=== PATIENT | male | born 1970 | race Caucasian/White ===

== ENCOUNTER 2019-05-16 08:22 | Emergency (ER) | payer OTHER, SELFPAY ==
[2019-05-16 08:36] VITALS: BP 166/97; PULSE 66; RESP 16; TEMP 36.2; O2SAT 98
--- NOTE | 2019-05-16 08:42 | ED.URI ---
HPI - URI/Sore Throat General Chief Complaint: Upper Respiratory Infection Stated Complaint: Congestion Time Seen by Provider: 05/16/19 08:42 Source: patient Mode of arrival: ambulatory Limitations: no limitations History of Present Illness HPI Narrative: Felipe Dutton is a 49 yo male with a PMH of HTN, low testosterone, gout, comes to express care with complaints of upper respiratory symptoms x2 to 3 days. States that he has a lot of congestion and eye watering this morning along with a dry cough Related Data Home Medications Medication Instructions Recorded Confirmed allopurinol 300 mg PO DAILY 05/16/19 05/16/19 amlodipine [Norvasc] 10 mg PO DAILY 05/16/19 05/16/19 benazepril 80 mg PO DAILY 05/16/19 05/16/19 carvedilol [Coreg] 12.5 mg PO BID 05/16/19 05/16/19 Allergies Allergy/AdvReac Type Severity Reaction Status Date / Time ciprofloxacin Allergy Unknown Rash Verified 05/16/19 08:46 Review of Systems Review of Systems: Narrative: My cONSTITUTIONAL: Denies fever, chills, sweats. EYES: Denies visual changes, redness, discharge. ENT: Has rhinorrhea, congestion, mild sore throat, no otalgia. CARDIOVASCULAR: Denies chest pain, palpitations, edema. RESPIRATORY: Denies dyspnea, wheezing, dry cough GASTROINTESTINAL: Denies abdominal pain, nausea, vomiting, diarrhea. GENITOURINARY: Denies dysuria, hematuria, abnormal discharge SKIN: Denies rash or itching. MUSCULOSKELETAL: Denies acute back pain, joint pain, or myalgia. NEUROLOGIC: Denies numbness, or focal weakness. PSYCHIATRIC: Denies anxiety or depression. [facility] Past Medical History Medical History Chronic pain of right knee Diverticulitis HLD (hyperlipidemia) HTN (hypertension) Hyperglycemia Osteoarthritis Polycythemia Family History Family History Father Family history of gout Family history of primary malignant neoplasm of liver Daughter Leukemia Other Family history of malignant neoplasm Hypertension Social History Social History Smoking status: Never smoker Alcohol intake: current Gender identity (if verbalized by the patient): Male Comments At time of signature, I agree with nursing past medical, surgical, social and family history. There is no relevant family history pertinent to the presenting complaint. Exam Narrative: Exam Narrative: GENERAL: This is a well-nourished, well-developed patient, in mild distress. HEAD: normocephalic, atraumatic. EYES: Sclera clear/white. Vision is grossly intact. EARS: External ears normal, auditory canals clear and without drainage, TMs normal without perforation. Hearing grossly intact. NOSE: External nose normal with nasal discharge, nares with redness, has rhinorrhea. THROAT: Mucous membranes moist, posterior pharynx erythema NECK: Neck supple, non-tender without lymphadenopathy, CARDIOVASCULAR: Regular rate and rhythm without murmurs, gallops, or rubs. RESPIRATORY: Clear to auscultation. Breath sounds equal bilaterally. No wheezes, rales, or rhonchi. GASTROINTESTINAL: Abdomen soft, SKIN: warm, good texture and turgor. NEURO: awake, alert, and oriented to person, place and time. There were no obvious focal neurologic abnormalities. EXTREMITIES: Normal range of motion. No edema adult exam Course Course Emergency Course: Flu swab Vital Signs Vital signs: Vital Signs Temperature 97.2 F L 05/16/19 08:36 Pulse Rate 66 05/16/19 08:36 Respiratory Rate 16 05/16/19 08:36 Blood Pressure 166/97 H 05/16/19 08:36 Pulse Oximetry 98 05/16/19 08:36 Temperature 97.2 F L 05/16/19 08:36 Pulse Rate 66 05/16/19 08:36 Respiratory Rate 16 05/16/19 08:36 Blood Pressure 166/97 H 05/16/19 08:36 Pulse Oximetry 98 05/16/19 08:36 MDM - URI/Sore Throat Differential Diagnosis Differential diagnosis: Likely u
== END 2019-05-16 09:18 | disposition home or self-care (01) ==
PROVIDERS: Emergency Provider Nurse Practitioner; PCP Internal Medicine
DX: J06.9 Acute upper respiratory infection, unspecified (principal); E78.5 Hyperlipidemia, unspecified; I10 Essential (primary) hypertension; M19.90 Unspecified osteoarthritis, unspecified site
CPT/HCPCS: 87804; 99213; G0463

== ENCOUNTER 2021-02-11 08:00 | Outpatient (RCR) | payer OTHER, SELFPAY ==
--- NOTE | 2020-12-10 08:50 | PTOPEVAL ---
PHYSICAL THERAPY EVALUATION AND PLAN OF CARE 12-10-20 Thank you for referring Felipe Dutton to [facility] [place].? He is scheduled to be seen for therapy? 1 x/week for 5 weeks. Please review, sign, date and return this plan of care LULY. I agree with and certify that the following plan of care is medically necessary. Referring Physician Date Attending Provider: MIKALA Adams PT Outpatient Evaluation Document 12/10/20 08:00 DANISH (Rec: 12/10/20 08:50 DANISH [id number]) Outpatient Past Medical History Past Medical History Source of Past Medical History Recalled from Previous Visit, Confirmed with Patient/Family Neurological History Hx Neurological Disorders No Significant History Cardiovascular History Hx Hypertension Yes: meds Respiratory History Hx Respiratory Disorders No Significant History Gastrointestinal History Hx Other Gastrointestinal Disorders Yes: bowel surgery due to diverticulitis Genitourinary History Hx Genitourinary Disorders No Significant History Musculoskeletal History Hx Gout Yes Hx Orthopedic Surgery Yes: R hand fracture Hx Other Musculoskeletal Disorders Yes: R and L shoulder pain/ injuries; B knee pain Evaluation Information Problem Diagnosis R shoulder pain Onset Nov 15, 2020 Subjective Information onset of increased pain with Query Text:As Reported By Patient/ lifting heavy bag and throwing Family trash bag into dumpster; has improved with less pain and more motion--doing exercises when lying down in bed; going to see ortho 12-15-20; original injury to R shoulder pitching baseball, issues off /on since then; also has problems with L shoulder Diagnostic Tests X-Rays For This Problem No MRI For This Problem No: reports cannot have MRI due to metal in his hand Other Tests For This Problem No Previous Treatments Previous Treatments For This Problem no previous PT on shoulder Prior Level of Function Activity Level (Last 3 Months) 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
--- NOTE | 2020-12-24 08:31 | PCPTNOTE ---
Patient called to cancel appointment for today 12/24/20 due to being called into work.
--- NOTE | 2021-01-07 08:21 | PCPTNOTE ---
Patient no showed to appointment this date. Patient was called but no answer. Left a voicemail this date informing of missed appointment at upcoming re eval on 01/13/21.
--- NOTE | 2021-01-13 11:55 | PCPTNOTE ---
pt did not show for today's reeval; called pt and he thought appt was tomorrow; rescheduled for tomorrow;
--- NOTE | 2021-01-14 08:49 | PTOPEVAL ---
PHYSICAL THERAPY REEVALUATION AND UPDATED PLAN OF CARE 01-14-21 Refer to the Clinical Summary below, for his status today, compared to the initial evaluation. The goals were partially achieved. PT is to continue treatment 1x/wk for 4 weeks, to further increase his shoulder strength and flexibility, with decrease pain. Thank you for referring Felipe Dutton to [facility].? Please review, sign, date and return this updated plan of care [facility]. I agree with and certify that the following plan of care is medically necessary. Referring Physician Date Attending Provider: MIKALA Adams *PT Outpatient Re-Evaluation Document 01/14/21 08:00 DANISH (Rec: 01/14/21 08:49 DANISH [id number]) Subjective Information Felipe reports: shoulder is Query Text:As Reported By Patient/ better and making progress, Family have more ROM and less pain in it; have not been playing pickleball, want to get back to it, going to do some gentle hitting of the ball; doing stretches, they help loosen it up; is using his arm at work , lifting and doing things with it; want to continue therapy for shoulder; Pain Assessment Timing of Pain Assessment Timing of Pain Assessment Assessment Pain Scale Pain Scale Used Numeric (1 - 10) Self Report Pain Assessment Right Shoulder(s) Reported Pain Level 0 Radicular Pain Location posterior shoulder joint; Pain Frequency Chronic,Intermittent Other Pain Description restrictive type pain, tell when push it and it hurt Lowest Pain Intensity 0 Greatest Pain Intensity 6 Pain Aggravating Factors Exercise/Activity,Lifting Other Pain Aggravating Factors lifting up weight forward, reach behind back, reach across body Pain Behaviors Anxious,Grimacing,Guarding Pain Score Pain Score 0: Self Report Additional Pain Score Comments Self assessment with the Quick DASH, 23 % limitation in activity level; with sleeping, awaken 1x/night due to pain Interventions Used Interventions Used By Clinicians Education,Exercise Pain Relief Interventions Used By Exercise,Inactivity/Rest Patient Other Alleviating Interventions no heat/ice used; taking meloxicam PRN; Upper Extremity Range of Motion Scapular/ Shoulder Range of Motion Right Shoulder Flexion - Active 155 Shoulder Abduction - Active
--- NOTE | 2021-01-21 15:30 | PCPTNOTE ---
Patient did not show up for scheduled appointment this date. Called and left voice mail about missed appointment. Reminded Pt of upcoming appointment on , 01/28/21 @ 08:00am.
--- NOTE | 2021-01-28 08:15 | PCPTNOTE ---
Patient did not show for appointment this date. Patient was called but no answer. Voicemail left and therapy informed of missed appointment.
--- NOTE | 2021-02-04 08:29 | PCPTNOTE ---
Patient did not show to appointment. Patient was called and voice message left with reminder of upcoming appointment.
--- NOTE | 2021-02-11 08:24 | PCPTNOTE ---
pt did not show for today's reeval;
--- NOTE | 2021-02-17 14:04 | PCPTNOTE ---
PHYSICAL THERAPY DISCHARGE 02-17-21 Attending Provider: MIKALA Adams Patient:Felipe Dutton Date of :1970 Felipe has received 3 PT sessions, from Dec 10 to Jan 14. He did not show for 6 and called/canceled 1 appointment. Therefore he will be discharged at this time. The goals were not addressed. Thank you for referring Felipe to [facility]. Please review, sign, date and return this discharge summary LULY. I have been updated about the patient's current status and I agree with discharge from the above service at this time. Referring Physician Date
== END 2021-02-18 16:06 | disposition home or self-care (01) ==
LOC: ANHPT 08:00
PROVIDERS: PCP Internal Medicine; Visit Provider Clinical Nurse Specialist
DX: S49.90XD Unspecified injury of shoulder and upper arm, unspecified arm, subsequent encounter (principal)
CPT/HCPCS: 97110; 97140; 97161

== ENCOUNTER 2021-09-20 10:07 | Outpatient (CLI) | payer OTHER, SELFPAY ==
--- NOTE | ~2021-09-20 | XR_ITS ---
XR chest 2V DATE: 09/20/2021 10:36 INDICATION: Inhalation of chemical irritant. Cough, shortness of breath TECHNIQUE: PA and lateral views COMPARISON: 06/02/2015 2 view chest FINDINGS: Cardiomegaly. There is mild aortic tortuosity. There are patchy infiltrates in the mid and particularly lower lung zones. Differential diagnosis inc ludes pulmonary edema, pneumonia, aspiration. Dextroscoliosis and degenerative spurring of the thoracic spine. IMPRESSION: Cardiomegaly Patchy bilateral mid and lower lung infiltrates; differential diagnosis includes pulmonary edema, pne umonia, aspiration Reviewed, dictated and finalized at location A. IMPRESSION: Cardiomegaly Patchy bilateral mid and lower lung infiltrates; differential diagnosis include s pulmonary edema, pneumonia, aspiration
== END 2021-09-20 10:08 | disposition home or self-care (01) ==
PROVIDERS: PCP Internal Medicine; Visit Provider Nurse Practitioner
DX: Z77.098 Contact with and (suspected) exposure to other hazardous, chiefly nonmedicinal, chemicals (principal); I51.7 Cardiomegaly; R91.8 Other nonspecific abnormal finding of lung field
CPT/HCPCS: 71046

== ENCOUNTER 2021-09-21 13:36 | Inpatient (IN) | payer OTHER, SELFPAY ==
[2021-09-21] VITALS (42 sets, daily range): BP systolic 70–194; BP diastolic 52–119; PULSE 62–197; RESP 15–92; TEMP 36.7–38.6; O2SAT 86–95; BMI 42.3
--- NOTE | ~2021-09-21 | XR_ITS ---
EXAMINATION: XR chest 1V portable DATE: 09/22/2021 05:51 INDICATION: Acute respiratory failure. TECHNIQUE: A single frontal view of the chest was obtained. COMPARISON: Chest single view 09/21/2021, chest CT 09/21/2021 FINDINGS: Left lateral costophrenic angle is excluded. There are airspace opacities in all lung zones bilaterally. No pleural effusion or pneumothorax. Cardiomegaly is noted. The endotracheal tube tip i s 5.0 cm above the sherman. The nasogastric tube tip is beyond the inferior margin of the radiograph, but at least to the stomach. IMPRESSION: 1. Diffuse lung disease with improvement on the right, consistent with pulmonary edema versus pneumon ia. 2. Cardiomegaly. Reviewed, dictated and finalized at location A. IMPRESSION: 1. Diffuse lung disease with improvement on the right, consistent with pulmonar y edema versus pneumonia. 2. Cardiomegaly.
--- NOTE | ~2021-09-21 | XR_ITS ---
EXAMINATION: XR chest 1V portable DATE: 09/28/2021 06:09 INDICATION: Respiratory failure TECHNIQUE: frontal view of the chest was obtained. COMPARISON: Chest radiograph dated 09/27/21 FINDINGS: Endotracheal tube tip 4.9 cm above the sherman. Nasogastric tube extends below the left hemidiaphragm with distal tip collimated off the study. No significant change in airspace opacities in bilateral mid and lower lung zones. No pneumothorax. C ardiomegaly. There are bridging osteophytes at multiple levels in the spine, consistent with diffuse idiopathic skeletal hyperostosis (DISH). IMPRESSION: 1. No significant change in bilateral lung disease which could represent pulmonary edema, atelectasis , pneumonia or some combination thereof likely superimposed over small bilateral pleural effusions. 2. Cardiomegaly. Reviewed, dictated and finalized at location A. IMPRESSION: 1. No significant change in bilateral lung disease which could represent pulmon katelynn edema, atelectasis, pneumonia or some combination thereof likely superimpos ed over small bilateral pleural effusions. 2. Cardiomegaly.
--- NOTE | ~2021-09-21 | CT_ITS ---
EXAMINATION: CTA chest PE protocol DATE: 09/21/2021 16:40 INDICATION: dyspnea TECHNIQUE: Computed tomography angiography (CTA) of the chest was performed with 100 mL Omnipaque-350 intravenous contrast timed to evaluate the pulmonary arteries. Coronal maximum intensity projection 3D-reconstructions were created by the technologist. The dose-length product (DLP) was 1279.89 mGy-cm . Automated exposure control and iterative reconstruction technique were employed. COMPARISON: None. FINDINGS: Study quality: Adequate. Pulmonary arteries: No pulmonary emboli detected. Thoracic aorta: Mild ectasia and arch calcification. Lung parenchyma and airways: Diffuse bilateral groundglass (and to a lesser extent consolidative and crazy paving) opacities, peripheral in the upper lobes, more centrally located in the lower lungs, wi th subpleural sparing. Thoracic inlet, axillae and chest wall: Unremarkable. Mediastinum: Borderline mediastinal and right hilar lymphadenopathy. Heart and pericardium: Cardiomegaly. Coronary artery calcifications: Mild. Pleura: Trace bilateral pleural fluid collections. Upper abdomen: No significant finding. Bones: No acute osseous finding. IMPRESSION: No CT evidence of acute pulmonary embolus. Markedly abnormal lung parenchyma, may reflect edema, atyp ical/viral infection, acute lung injury (including diffuse alveolar damage/hemorrhage), or combinatio n of the preceding. Reviewed, dictated and finalized at location K. IMPRESSION: No CT evidence of acute pulmonary embolus. Markedly abnormal lung parenchyma, m ay reflect edema, atypical/viral infection, acute lung injury (including diffus e alveolar damage/hemorrhage), or combination of the preceding.
--- NOTE | ~2021-09-21 | XR_ITS ---
EXAMINATION: XR chest 1V portable INDICATION: Pain acute respiratory failure TECHNIQUE: Portable AP chest at 0518 hours COMPARISON: 09/24/2021 FINDINGS: The endotracheal tube ends approximately 4.9 cm above the sherman. The nasogastric tube is f ollowed as far as the stomach. Its tip is beyond the inferior margin of the radiograph. Cardiomegaly is noted. There are diffuse opacities throughout all lung zones without significant change. Small ple ural effusions are unchanged. There is no pneumothorax. IMPRESSION: 1. Stable diffuse lung disease, consistent with pneumonia and/or pulmonary edema. 2. Cardiomegaly. 3. Small pleural effusions, stable. Reviewed, dictated and finalized at location A. IMPRESSION: 1. Stable diffuse lung disease, consistent with pneumonia and/or pulmonary yessica a. 2. Cardiomegaly. 3. Small pleural effusions, stable.
--- NOTE | ~2021-09-21 | XR_ITS ---
EXAMINATION: XR chest 1V portable DATE: 09/23/2021 05:57 INDICATION: Acute respiratory failure. TECHNIQUE: A single frontal view of the chest was obtained. COMPARISON: Chest single view 09/22/2021, chest CT 09/21/2021 FINDINGS: There are airspace opacities in all lung zones bilaterally with relative sparing of the kelsey g apices. There are small pleural effusions. No pneumothorax. Cardiomegaly is noted. The endotracheal tube tip is 4.2 cm above the sherman. The nasogastric tube tip is beyond the inferior margin of the r adiograph, but at least to the stomach. IMPRESSION: 1. Diffuse lung disease with improvement on the left, consistent with pulmonary edema versus pneumoni a. 2. Stable small pleural effusions. 3. Cardiomegaly. Reviewed, dictated and finalized at location A. IMPRESSION: 1. Diffuse lung disease with improvement on the left, consistent with pulmonary edema versus pneumonia. 2. Stable small pleural effusions. 3. Cardiomegaly.
--- NOTE | ~2021-09-21 | US_ITS ---
EXAMINATION: US renal BI DATE: 09/22/2021 13:27 INDICATION: Acute kidney injury TECHNIQUE: Multiple grayscale and Doppler ultrasound images of the kidneys were obtained. COMPARISON: 06/11/2020 FINDINGS: The right kidney measures 14.1 x 6.4 x 7.4 cm. The left kidney measures 13.9 x 6.8 x 6.8 cm . The kidneys demonstrate normal parenchymal echogenicity. There is no hydronephrosis. The bladder is decompressed by Argueta catheter. IMPRESSION: 1. Normal kidneys without hydronephrosis. Reviewed, dictated and finalized at location A.
--- NOTE | ~2021-09-21 | XR_ITS ---
EXAMINATION: XR chest ET placement, XR abdomen NG/feed tube insert Exam Date/Time: 09/21/2021 19:20 CDT HISTORY: post intubation Comparison: X-ray chest 09/20/2021. CTPA chest 09/21/2021. RESULT: Lines, tubes, and devices: New endotracheal tube terminating 3.8 cm above the sherman. New NG tube, t ip and side port project over the stomach. Lungs and pleura: Worsening patchy bilateral airspace disease,. Cardiomediastinal silhouette: Stable cardiomediastinal silhouette. Other: No acute osseous or upper abdominal finding. IMPRESSION: Endotracheal and NG tubes, both in good position. Worsening pulmonary opacities, differential discuss ed in the prior CT report and is unchanged. Reviewed, dictated and finalized at location K. IMPRESSION: Endotracheal and NG tubes, both in good position. Worsening pulmonary opacities , differential discussed in the prior CT report and is unchanged.
--- NOTE | ~2021-09-21 | XR_ITS ---
EXAMINATION: XR chest 1V portable INDICATION: Acute respiratory TECHNIQUE: Portable AP chest at 0515 hours COMPARISON: 09/25/2021 FINDINGS: The endotracheal tube ends approximately 5.1 cm cm above the sherman. The nasogastric tube i s followed as far as the stomach. Its tip is beyond the inferior margin of the radiograph. Diffuse in terstitial and airspace opacities persist without significant change. There are small, stable pleural effusions. Cardiomegaly is noted. There is no pneumothorax. IMPRESSION: 1. Stable diffuse lung disease, consistent with pneumonia and/or pulmonary edema. 2. Cardiomegaly. Reviewed, dictated and finalized at location A. IMPRESSION: 1. Stable diffuse lung disease, consistent with pneumonia and/or pulmonary yessica a. 2. Cardiomegaly.
--- NOTE | ~2021-09-21 | XR_ITS ---
EXAMINATION: XR chest 1V portable INDICATION: Respiratory failure TECHNIQUE: Portable AP chest at 1026 hours COMPARISON: 09/26/2021 FINDINGS: The endotracheal tube ends approximately 4.0 cm above the sherman. The nasogastric tube is f ollowed as far as the stomach. Its tip is beyond the inferior margin of the radiograph. Cardiomegaly is noted. Diffuse interstitial and airspace opacities persist with slight improvement in the right marta ng base. No pneumothorax is identified there are small stable pleural effusions. IMPRESSION: 1. Diffuse lung disease with interval improvement, consistent with pneumonia and/or pulmonary edema. 2. Cardiomegaly. Reviewed, dictated and finalized at location A. IMPRESSION: 1. Diffuse lung disease with interval improvement, consistent with pneumonia an d/or pulmonary edema. 2. Cardiomegaly.
--- NOTE | ~2021-09-21 | XR_ITS ---
EXAMINATION: XR chest 1V portable DATE: 09/24/2021 05:27 INDICATION: Acute respiratory failure. TECHNIQUE: A single frontal view of the chest was obtained. COMPARISON: Chest single view 09/23/2021, chest CT 09/21/2021 FINDINGS: There are airspace opacities in all lung zones bilaterally with relative sparing of the kelsey g apices. There are small pleural effusions. No pneumothorax. Cardiomegaly is noted. The endotracheal tube tip is 4.1 cm above the sherman. The nasogastric tube tip is beyond the inferior margin of the r adiograph, but at least to the stomach. IMPRESSION: 1. Stable diffuse lung disease, consistent with pulmonary edema versus pneumonia. 2. Stable small pleural effusions. 3. Cardiomegaly. Reviewed, dictated and finalized at location A. IMPRESSION: 1. Stable diffuse lung disease, consistent with pulmonary edema versus pneumoni a. 2. Stable small pleural effusions. 3. Cardiomegaly.
--- NOTE | 2021-09-21 13:47 | ECG_ITS ---
Measurements Intervals [place] Rate: 173 P: [place]: 0 QRS: -26 QRSD: 111 T: 136 QT: 260 QTc: 442 Interpretive Statements ATRIAL FIBRILLATION WITH RAPID VENTRICULAR RESPONSE WITH ABERRANT CONDUCTION OR VENTRICULAR PREMATURE COMPLEXES BASELINE ARTIFACT NONSPECIFIC INTRAVENTRICULAR CONDUCTION DELAY NONSPECIFIC ST & T-WAVE ABNORMALITY ABNORMAL ECG NO PREVIOUS ECG AVAILABLE FOR COMPARISON Electronically Signed On 09-21-2021 15:09:02 CDT by Shon Sánchez M.D.
--- NOTE | 2021-09-21 13:55 | ED.SOB ---
HPI - SOB/Dyspnea General Chief Complaint: Shortness of Breath/Dyspnea Stated Complaint: SOB Time Seen by Provider: 09/21/21 13:44 History of Present Illness HPI Narrative: Pt presents with SOB and dry cough with blood streaks in it. Pt thinks he might have inhaled some chemicals at work last week. Pt denies CP. Related Data Home Medications Medication Instructions Recorded Confirmed cetirizine 10 mg tablet (Zyrtec) 10 mg PO DAILY PRN 07/20/20 09/21/21 testosterone cypionate 200 mg/mL 125 mg IM WEEKLY 09/21/21 09/21/21 intramuscular oil (Depo-Testosterone) Allergies Allergy/AdvReac Type Severity Reaction Status Date / Time ciprofloxacin Allergy Unknown Rash Verified 09/21/21 13:15 Review of Systems Review of Systems: All systems reviewed & are unremarkable except as noted in HPI and below PMFSH Past Medical History Medical History Arthritis of right acromioclavicular joint Chronic pain of right knee Diverticulitis DM w/o complication type II Genital herpes HLD (hyperlipidemia) HTN (hypertension) Hyperglycemia Morbid obesity due to excess calories Osteoarthritis Polycythemia Family History Family History Father Family history of gout Family history of primary malignant neoplasm of liver Daughter Leukemia Other Family history of malignant neoplasm Hypertension Social History Social History Smoking status: Never smoker Alcohol intake: current Alcohol use details: occasionally Substance use: current Substance use type: marijuana 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[employer] Gender identity (if verbalized by the patient): Male Spiritual care concerns: No Exam Const: Nutritional Appearance: obese Orientation/consciousness: patient oriented x3 Limitations: no limitations Eyes: EOM: EOMs intact bilaterally Neck: Neck: no meningeal signs Chest: Chest palpation & inspection: normal inspection of the chest Resp: Effort & Inspection: labored and tachypneic Auscultation: rales Cardio: Rate: tachycardic Rhythm: abnormal rhythm GI: GI Palp: Yes Soft to palpation Auscultation: normal bowel sounds Skin: General skin exam: normal color Rashes: no rashes Neuro: General: patient oriented x3, moves all extremities, no meningeal signs and no focal motor deficits Cranial nerves: Yes Nystagmus not present Speech: normal speech Extrem: General: edema Psych: Mental Status: mental status grossly normal Affect: normal affect Attitude: cooperative Course Course Emergency Course: pt rate very volatile improved initially but then worsened. Pt became diaphoretic was sent to CT no PE, Pt seen by provider, transferred to ICU Vital Signs Vital signs: Vital Signs Temperature 98.1 F 09/21/21 13:42 Pulse Rate 175 H 09/21/21 13:42 Respiratory Rate 28 H 09/21/21 13:42 Blood Pressure 194/119 H 09/21/21 13:42 Pulse Oximetry 86 L 09/21/21 13:42 Oxygen Delivery Room Air 09/21/21 13:42 Temperature 98.2 F 09/21/21 22:42 Pulse Rate 62 09/21/21 22:00 Respiratory Rate 28 H 09/21/21 22:00 Blood Pressure 99/64 L 09/21/21 22:00 Pulse Oximetry 87 L 09/21/21 22:00 Oxygen Delivery Mechanical Ventilation 09/21/21 20:00 Oxygen Flow Rate 5 09/21/21 15:20 Fraction of Inspired Oxygen 100 09/21/21 21:28 MDM - SOB/Dyspnea Lab Data Result diagrams: 09/21/21 13:48 09/21/21 13:48 Labs: Lab Results 09/21/21 09/21/21 09/21/21 Range/Units 13:48 13:48 13:48 WBC 21.8 H (4.5-10.0) K/mm3 RBC 5.68 (4.6-6.20) M/mm3 Hgb 17.4 (14.0-18.0) g/dL Hct 52.1 H (42.0-52.0) % MCV 91.7 (80-100) fl MCH 30.6 (26-34) pg MCHC 33.4 (32-36) g/dl RDW 13.8 (11.5-14.5) % Plt Count 297 (150-375) k/mm3 MPV 11.9 H
[2021-09-21] MEDS: dilTIAZem HCl INJ 25 MG/5 ML VIAL 30 MG IV PUSH (13:59)
[2021-09-21 14:02] LABS: Hematocrit 52.1 % (42.0-52.0); Hemoglobin 17.4 g/dL (14.0-18.0); Mean Corpuscular HGB Conc 33.4 g/dl (32-36); Mean Corpuscular Hemoglobin 30.6 pg (26-34); Mean Corpuscular Volume 91.7 fl (80-100); Mean Platelet Volume 11.9 fl (7.4-10.4); Platelet Count Result 297 k/mm3 (150-375); Red Blood Count 5.68 M/mm3 (4.6-6.20); Red Cell Distribution Width 13.8 % (11.5-14.5); White Blood Count 21.8 K/mm3 (4.5-10.0)
[2021-09-21] MEDS: dilTIAZem 100 MG/100 ML 100 MG/100 ML BAG 10 MG IV CONT (14:06)
[2021-09-21 14:07] LABS: Alanine Aminotransferase 89 U/L (6-50); Albumin Level 4.1 g/dL (3.5-5.1); Alkaline Phosphatase 62 U/L (38-126); Anion Gap 14 mmol/L (8-16); Aspartate Amino Transferase 63 U/L (17-59); Bilirubin,Total 1.8 mg/dL (0.2-1.3); Blood Urea Nitrogen 20 mg/dL (9-20); Calcium 8.4 mg/dL (8.4-10.2); Carbon Dioxide 23 mmol/L (22-30); Chloride 100 mmol/L (98-107); Estimated CRCL calculation 92 ml/min; Estimated Glomerular Filt Rate 58; Glucose 209 mg/dL (65-110); Potassium 3.9 mmol/L (3.4-5.0); Sodium 137 mmol/L (137-145)
[2021-09-21 14:09] LABS: INR 1.3; Prothrombin Time 15.7 Seconds (11.1-14.7)
[2021-09-21 14:10] LABS: Partial Thromboplastin Time 29.2 SECONDS (22.3-36.8)
[2021-09-21 14:22] LABS: NT Pro B Type Natriuretic Pept 2750 pg/mL (5-100); Troponin I < 0.012 ng/mL (0.000-0.034)
[2021-09-21 14:24] LABS: Band Neutrophils Percent 1 % (0-6); Lymphocytes Absolute Manual 1.52 K/mm3 (1.1-4.5); Monocytes Absolute Manual 1.52 K/mm3 (0.1-0.90); Monocytes Percent Manual 7 % (3-9); Neutrophils Absolute Manual 18.74 K/mm3 (1.3-6.7); Neutrophils Percent Manual 85 % (46-73); Total Cells Counted 100
[2021-09-21 14:25] LABS: Platelet Estimate Adequate (Adequate)
[2021-09-21] MEDS: FUROSEMIDE INJ 40 MG/4 ML VIAL IV PUSH (15:07)
--- NOTE | 2021-09-21 15:12 | PC.NURSE ---
per MIKIE Pollard RN okay to titrate diltiazem to 20mg/hr
[2021-09-21 15:49] LABS: SARS-CoV-2 RNA PCR Negative
[2021-09-21] MEDS: LABETALOL HCL INJ 100 MG/20 ML VIAL 20 MG IV PUSH ×2 (15:53→17:32)
--- NOTE | 2021-09-21 16:13 | PC.NURSE ---
pt. family called out. reports pt. breathing is worse. pt. diaphoretic, reports difficulty breathing and worsening shortness of breath. erp called to bedside.pt. VS stable at this time.
--- NOTE | 2021-09-21 16:20 | ECG_ITS ---
Measurements Intervals [place] Rate: 140 P: VT: 0 QRS: -22 QRSD: 118 T: 103 QT: 290 QTc: 444 Interpretive Statements ATRIAL FIBRILLATION WITH RAPID VENTRICULAR RESPONSE NONSPECIFIC INTRAVENTRICULAR CONDUCTION DELAY [110+ ms QRS DURATION] NONSPECIFIC ST & T-WAVE ABNORMALITY ABNORMAL ECG COMPARED TO ECG 09/21/2021 13:46:13 NO SIGNIFICANT CHANGES Electronically Signed On 09-22-2021 12:07:55 CDT by Shon Sánchez M.D.
[2021-09-21 17:43] LABS: Alveolar/Arterial O2 Gradient 177.8 mmHg; Base Excess ABG -1.9 mEq/l (+/-2.0); Fractional Inspired Oxygen 36 %; HCO3 ABG 19.7 mEq/l (22.0-26.0); Oxygen Content ABG 20.4 %vol (16.0-22.0); Oxygen Saturation ABG 87.2 % (95.0-100.0); PCO2 ABG 26.9 mmHg (35.0-45.0); PO2 ABG 47.7 mmHg (80.0-100.0); PO2 FiO2 Ratio Arterial Blood 1.33 %; Total Hemoglobin 17.3 g/dL (12.0-18.0); pH ABG 7.482 (7.350-7.450)
[2021-09-21 17:44] LABS: Device NASAL CANNULA; Modified Allen's Test Pass; Oxyhemoglobin 84.3 % THb (90.0-100.0); Site Drawn RIGHT RADIAL
[2021-09-21] MEDS: ESMOLOL HCL 2,500 MG/250 ML 2,500 MG/250 ML BAG 44.88 MG IV CONT (17:55)
--- NOTE | 2021-09-21 18:30 | ADMGEN ---
This patient, Felipe Dutton, was admitted to Intensive Care Unit-7. Patient/family oriented to hospital policies and general routines including ID bracelet, bed and alarms, visiting hours, pain management, procedures, bathroom and other care routines, personal items, smoking policy, room service/diet, and visiting hours. Information on how to activate the Rapid Response Team has been discussed. Patient/Family are encouraged to report perceived risks to care and to ask questions if they do not understand what they are told or what they should do.
[2021-09-21] MEDS: MIDAZOLAM HCL (*CRX) 2 MG/2 ML VIAL 5 MG IV PUSH (19:15)
[2021-09-21] MEDS: PROPOFOL IV EMULSION 100 ML 35.9 MG IV CONT (19:23)
[2021-09-21 19:26] LABS: Thyroid Stimulating Hormone Reflex 0.906 uIU/mL (0.465-4.68)
[2021-09-21] MEDS: MIDAZOLAM 100MG/NS 100ML(*CRX) 100 MG/100 ML BAG IV CONT (19:26)
[2021-09-21] MEDS: FENTANYL 2,500MCG/NS250ML(*CRX 2,500 MCG/250 ML BAG 20 MCG IV CONT (19:40)
[2021-09-21] MEDS: ROCURONIUM BROMIDE 50 MG/5 ML VIAL IV PUSH (19:52)
[2021-09-21] MEDS: NOREPINEPHRINE 8 MG/D5W 250 ML 8 MG/250 ML BAG 5 MG (19:58)
[2021-09-21] MEDS: NOREPINEPHRINE 8 MG/D5W 250 ML 8 MG/250 ML BAG 9.38 MG IV CONT (20:00)
[2021-09-21] MEDS: CISATRACURIUM BESYLATE 20 MG/10 ML VIAL 22.4 MG IV PUSH (20:14)
[2021-09-21] MEDS: CISATRACURIUM BESYLATE 200 MG in DEXTROSE 5% 80 ML 13.46 ML IV CONT (20:14)
[2021-09-21] MEDS: AMIODARONE 150 MG/D5W 100 ML 150 MG/100 ML BAG 600 MG IV CONT (20:15)
[2021-09-21 20:20] LABS: Glucose Point of Care 263 mg/dl (65-105)
[2021-09-21] MEDS: AMIODARONE 360 MG/D5W 200 ML 360 MG/200 ML BAG 33.33 MG IV CONT (20:27)
[2021-09-21 20:38] LABS: Base Excess ABG -5.5 mEq/l (+/-2.0); Carboxyhemoglobin 0.4 % THb (0-2.0); Fractional Inspired Oxygen 100 %; HCO3 ABG 22.9 mEq/l (22.0-26.0); Methemoglobin ABG 0.5 %THb (0-1.5); Oxygen Content ABG 20.6 %vol (16.0-22.0); PCO2 ABG 55.5 mmHg (35.0-45.0); PO2 ABG 62.5 mmHg (80.0-100.0); PO2 FiO2 Ratio Arterial Blood 0.63 %; Reduced Hemoglobin 13.4 %THb (0-5.0); Total Hemoglobin 17.1 g/dL (12.0-18.0)
[2021-09-21 20:43] LABS: Oxygen Saturation ABG 87.4 % (95.0-100.0); pH ABG 7.234 (7.350-7.450)
[2021-09-21 20:44] LABS: Device VENTILATOR; Oxyhemoglobin 85.7 % THb (90.0-100.0); Site Drawn ARTLINE
[2021-09-21 20:45] LABS: Arterial Blood Gas PEEP 10 cmH2O; Arterial Blood Gas Tidal Volume 450 ml; Arterial Blood Gas Vent Mode CMV; Arterial Blood Gas Ventilator rate 24 /MIN
--- NOTE | 2021-09-21 20:46 | WPDPROCEDUR ---
Procedures Arterial Line Arterial Line Date: 09/21/21 Arterial Line Time: 20:30 Perfomed Emergently - Given emergent patient conditions, temporal constraints may have precluded informed consent: Yes Time Out Performed: Yes Patient Position: other Steward/Stewardess Bath Prep: sterile gown, sterile gloves, mask and hat Site: right Site Prep: chlorhexidine and sterile drape Skin Anesthesia: none Technique used: ultrasound-guided Size (Gauge): 20 Length: 12 cm Closure/Dressing: suture, transparent dressing, hemostatic product, antimicrobial product and securement product Patient tolerated procedure: well Complications: none
--- NOTE | 2021-09-21 20:50 | WPDPROCEDUR ---
Procedures Central Line Placement Right Femoral: Central Line Date: 09/21/21 Central Line Time: 20:00 Consent: I have discussed with the patient and/or surrogate, the non-emergent placement of a central venous catheter, including its clinical necessity/indication and associated potential risks and complications. The patient and/or surrogate understand(s) and acknowledge(s) the need to proceed with central venous catheter insertion as an important element of the patient's clinical management. Time Out Performed: Yes Patient Position: supine Provider Prep: mask, sterile gown, sterile gloves, Max. sterile barrier precautions, cap and hand hygiene with conventional soap/water or alcohol based hand rub Central line prep: 2% Chlorhexidine scrub and sterile full body sheet applied Sterile US Technique with sterile gel/sterile probe covers: Yes Central line lumen inserted: triple [place]: 7 Length (cm): 16 Depth of Insertion (cm): 14 Post Procedure: sutured in place, good blood return, all ports aspirated, flushed, capped, transparent dressing, hemostatic product, antimicrobial product and securement product Patient tolerated procedure: well and no complications Complications: none Intubation Intubation Date: 09/21/21 Intubation Time: 19:00 A pre-procedural Time-Out was completed immediately before starting the procedure and confirmed: Patient Identification, Site, Procedure, Patient Position and the Availability of Requisite Equipment: Yes Sedative: etomidate Mg given: 20 Paralytic: succinylcholine Laryngoscope: fiber optic video scope Assist device used: fiber optic device ET tube size: 7.5 Tube secured depth (cm): 23 Tube secured location: teeth Tube placement confirmation: visualized tube passing through cords, equal breath sounds bilaterally, no breath sounds over epigastrium and confirmation by capnometry Patient tolerated procedure: well and no complications Intubation complications: none Additional comments: CXR shows good tube placement
[2021-09-21] MEDS: SODIUM CHLORIDE 0.9% IV 1,000 ML 100 ML (21:00)
[2021-09-21 21:24] LABS: Troponin I 0.016 ng/mL (0.000-0.034)
[2021-09-21] MEDS: SODIUM BICARBONATE 8.4% 50 MEQ/50 ML SYRINGE IV PUSH ×2 (21:26→21:27)
--- NOTE | 2021-09-21 21:33 | ECG_ITS ---
Measurements Intervals [place] Rate: 63 P: 11 HI: 206 QRS: -22 QRSD: 139 T: 6 QT: 440 QTc: 453 Interpretive Statements SINUS RHYTHM LEFT ATRIAL ENLARGEMENT NONSPECIFIC INTRAVENTRICULAR CONDUCTION DELAY BORDERLINE ECG COMPARED TO ECG 09/21/2021 16:23:56 SINUS RHYTHM NOW PRESENT Electronically Signed On 09-22-2021 14:36:48 CDT by Shon Sánchez M.D.
[2021-09-21 21:38] LABS: Lactic Acid Reflex 1.5 mmol/L (0.7-2.0)
[2021-09-21] MEDS: VASOPRESSIN INJ 100 UNITS in DEXTROSE 5% 95 ML IV CONT (22:00)
[2021-09-21] MEDS: MINERAL OIL/WHITE PETROLATUM OINTMENT 1 APPLIC EACH EYE (22:21)
[2021-09-21] MEDS: CENTRAL LINE FLUSH 10 ML IV PUSH (22:22)
[2021-09-21 22:52] LABS: Alveolar/Arterial O2 Gradient 578.7 mmHg; Base Excess ABG -3.8 mEq/l (+/-2.0); Carboxyhemoglobin 0.3 % THb (0-2.0); Fractional Inspired Oxygen 100 %; HCO3 ABG 23.5 mEq/l (22.0-26.0); Methemoglobin ABG 0.5 %THb (0-1.5); Oxygen Content ABG 21.5 %vol (16.0-22.0); Oxyhemoglobin 93.6 % THb (90.0-100.0); PCO2 ABG 50.4 mmHg (35.0-45.0); PO2 ABG 83.9 mmHg (80.0-100.0); PO2 FiO2 Ratio Arterial Blood 0.84 %; Reduced Hemoglobin 5.6 %THb (0-5.0); Total Hemoglobin 16.3 g/dL (12.0-18.0)
[2021-09-21 22:53] LABS: Device VENTILATOR; Site Drawn ARTLINE; pH ABG 7.286 (7.350-7.450)
[2021-09-21 22:54] LABS: Arterial Blood Gas PEEP 12 cmH2O; Arterial Blood Gas Tidal Volume 450 ml; Arterial Blood Gas Vent Mode CMV; Arterial Blood Gas Ventilator rate 28 /MIN
[2021-09-22] VITALS (48 sets, daily range): BP systolic 95–170; BP diastolic 58–99; PULSE 59–749; RESP 22–28; TEMP 36.2–38.6; O2SAT 87–100; BMI 40.9
--- NOTE | 2021-09-22 | ECHO_ITS ---
Patient Info Name: Felipe Dutton Age: 51 years : 1970 Gender: Male Ht: 71 in Wt: 222 lbs BSA: 2.27 m2 HR: 69 bpm BP: 164 / 94 mmHg Heart Rhythm: Sinus Rhythm Exam Date: 09/22/2021 1:44 PM Exam Location: [facility] Patient Status: Inpatient Admit Date: 09/21/2021 Staff Ordering Physician: Francisco J Desai MD Financial Analyst Intern: Adis Duran, TESSA, RT Attending Provider: Katy Guillory MD Exam Type: CA echo dop color flow w con Study Info Indications I50.9 - Heart failure, unspecified Complete two-dimensional, color flow and Doppler transthoracic echocardiogram is performed with contrast to opacify the left ventricle and to improve the deliniation of the left ventricle endocardial borders. Summary 1. Technically difficult study with limited views. Regional wall motion assessment limited due to poor endomyocardial border definition despite definity contrast enhancement. 2. Left ventricular chamber dimension is mildly enlarged. 3. Left ventricular systolic function is probably lower limits of normal, estimated at 50-55%. 4. There is moderately increased left ventricular wall thickness. 5. The left ventricular diastolic function is grade II diastolic dysfunction. 6. Left atrial chamber dimension is moderately enlarged. 7. There is trace mitral valve regurgitation. Left Ventricle Left ventricular chamber dimension is mildly enlarged. Left ventricular systolic function is probably lower limits of normal, estimated at 50-55%. There is moderately increased left ventricular wall thickness. The left ventricular diastolic function is grade II diastolic dysfunction. Technically difficult study with limited views. Regional wall motion assessment limited due to poor endomyocardial border definition despite definity contrast enhancement. Right Ventricle Right ventricular chamber dimension is not well visualized. Right ventricular systolic function is normal. Left Atria Left atrial chamber dimension is moderately enlarged. Right Atria Right atrial chamber dimension is mildly enlarged. Aortic Valve The aortic valve is not well visualized. There is no aortic valve stenosis. There is trace aortic valve regurgitation. Pulmonic Valve The pulmonic valve is not well visualized. Mitral Valve The mitral valve has normal leaflets. There is trace mitral valve regurgitation. The mitral valve annulus is mildly calcified. Tricuspid Valve The tricuspid valve leaflets are not well visualized. There is trace tricuspid valve regurgitation. Unable to estimate PA systolic pressure due to poor spectral resolution of tricuspid regurgitant jet velocity. Pericardium/Pleural The pericardium appears epicardial fat pad. There is trivial pericardial effusion. Inferior Vena Cava Dilated inferior vena cava at 3.7 cm with no collapse upon inspiration consistent with significantly elevated right atrial pressure, 15 mmHg. Aorta The aortic root size at the sinus of Valsalva is not well visualized. Left Ventricular Outflow Tract Name Value Normal LVOT Doppler LVOT Peak Gradient 4 mmHg LVOT Mean Gradient 2 mmHg LVOT VTI 21.63 cm LVOT VTI/AV
--- NOTE | 2021-09-22 00:20 | PM.EVENT ---
Event Note Event Note Event Note: 09/21/2021 at 8:00 p.m. I discussed the patient's case with nurse practitioner who had been caring for the patient. I arrived to the bedside to supervise a right femoral CVC. Line went without complication or difficulty. However patient was hypotensive and requiring high PEEP pressures. Subsequently I placed a right radial art line for closer monitoring blood blood pressures and obtaining frequent ABGs. Patient was still hypoxic despite peep of 10. Subsequently patient's peep was increased to 12 with improved oxygenation. Patient's tidal volumes were 450 with rate of 24. Ordered that been given to increase tidal volume to 500 after initial ABG had return. A called supervisor network control operators discussed the patient's case and he agreed with decreasing patient's tidal IM back to 450 increasing rate to 28 in treating patient as ARDS. Repeat ABG was ordered to follow-up. I did discuss that the patient was still hypotensive patient was already on Levophed of 20. Vasopressin was added as well as 2 amps of sodium bicarb push. Patient was already sedated with fentanyl and Versed and was receiving amiodarone due to AFib RVR. I provided orders to nursing staff to prone the patient around 10:00 p.m.. Bilat time the patient had already converted back to sinus rhythm. Patient was febrile and had already received antibiotics with azithromycin and Rocephin. Unfortunately blood cultures were not obtained prior to administration of antibiotics. Blood cultures have been obtained at this time and vancomycin has been added to the patient's antibiotic regimen. On exam the patient was profusely diaphoretic, warm to touch, intubated, sedated, on paralytic for Assessment and plan: 1. Acute hypoxic respiratory failure--the presentation concerning for ARDS. Patient has been placed on antibiotic therapy with Rocephin, azithromycin and vancomycin. Blood cultures are now pending. Patient is up on sedation and paralytic with Nimbex. Patient will be proned 2. Septic shock-probably due to pneumonia. Antibiotic therapy as discussed above. The patient is now on Levophed and vasopressin. 3. AFib RVR--patient has converted back to sinus rhythm. 45 minutes spent in critical care activities in exclusion of procedures. Due to a high probability of clinically significant, life threatening deterioration, the patient required my highest level of preparedness to intervene emergently and I personally spent this critical care time directly and personally managing the patient. This critical care time included obtaining a history; examining the patient; pulse oximetry; ordering and review of studies; arranging urgent treatment with development of a management plan; evaluation of patient's response to treatment; frequent reassessment; and discussions with other providers. It was exclusive of separately billable procedures and treating other patients and teaching time. Please see Assessment and Plan section and the rest of the note for further information on patient assessment and treatment.
[2021-09-22 00:39] LABS: Troponin I 0.015 ng/mL (0.000-0.034)
--- NOTE | 2021-09-22 01:03 | PM.IMHP ---
H&P: HPI History of Present Illness Date/Time: 09/21/21 5195 Chief Complaint: Shortness of breath Narrative: Mr. Dutotn is a 51-year-old gentleman who presented to the emergency room for shortness of breath x1 week. Patient states he was sent to the emergency room by his primary care provider. Patient states he had gone to see his primary care provider for this increasing shortness of breath. Patient states that he he had not had any chest discomfort until he was in the emergency room and then he began having epigastric pressure. Patient denies any cough at home. Patient denies any fever or chills. Patient states he is typically been healthy except for the fact that he is overweight and has recently been diagnosed with diabetes and does have a history of hypertension. Patient states he has been taking all medications at home without any difficulty. Patient states approximately 1 week ago he was cleaning an air conditioner with an air conditioner loom cleaner and did inhale some of the fumes. He states that the bottle did show that if he were to inhaled the fumes he is to be in fresh air and that was the only recommendation. Patient states that his shortness of breath and not begin right after this episode. Upon evaluation in emergency room patient was noted to be in atrial fibrillation with rapid ventricular response with a heart rate in the 170s. Patient was given a Cardizem bolus at 30 mg and then placed on a Cardizem drip at 20 mg an hour. Patient's heart rate remained elevated he was given a dose of labetalol which did mildly help his heart rate. Wall being evaluated emergency room patient became extremely diaphoretic and began coughing. Patient states that he was having a difficult time catching his breath and patient was sent for CTA to rule out pulmonary embolism. CTA showed no pulmonary embolism. Patient states that he just did not feel right and was very uncomfortable and wanted to stand up. Patient continued to have diaphoresis off and on throughout his emergency room visit. Patient was placed on an esmolol drip as well as Cardizem drip while in the emergency room and was taken up to the intensive care unit for further treatment. Patient arrived to the ICU and was extremely diaphoretic and was unable to catch his breath. Patient then was noted to have a blood pressure that was trending down words and patient became hypotensive. Patient did need to be intubated have a central line placed both which have procedure notes. Upon evaluation of outpatient records patient's primary care did see patient prior sending into the emergency room and patient was complaining of cough with yellow and bloody sputum for the last 3 days. Per his primary care patient did have a low-grade fever and was complaining of chills and sweats. Patient did have a chest x-ray done as an outpatient that showed possible pneumonia. Patient was given oral antibiotics, but he continued to feel worse. Patient does have a known history of diabetes mellitus, hypertension, dyslipidemia, polycythemia, genital herpes, and crest syndrome. Review of Systems Review of Systems: A 12 point review of systems was completed patient all pertinent positive and negative per HPI the remainder are unremarkable. [facility] Past Medical History Medical History (Updated 09/22/21 @ 02:12 by Fatmata Hernandez APRN) Arthritis of right acromioclavicular joint Chronic pain of right knee CREST syndrome Diverticulitis DM w/o complication type II Genital herpes HLD (hyperlipidemia) HTN (hypertension) Hyperglycemia Morbid obesity due to excess calories Osteoarthritis Polycythemia Family History Family History Father Family history of gout Family history of primary malignant neoplasm of liver Daughter Leukemia Other Family history of malignant neoplasm Hypertension Social History Social History (Reviewed 09/21/21 @
[2021-09-22] MEDS: INSULIN ASPART (*BKC) 100 UNITS/ML SUB-Q ×6 (01:28→23:34)
[2021-09-22 01:30] LABS: Glucose Point of Care 296 mg/dl (65-105)
--- NOTE | 2021-09-22 01:45 | PC.NURSE ---
2350 Patient placed in prone position as ordered by Dr. Desai. Tolerated well. O2 sats 99-100%
[2021-09-22] MEDS: AMIODARONE 360 MG/D5W 200 ML 360 MG/200 ML BAG 16.67 MG IV CONT (02:26)
[2021-09-22] MEDS: CISATRACURIUM BESYLATE 200 MG in DEXTROSE 5% 80 ML 13.46 ML IV CONT ×3 (02:27→17:25)
[2021-09-22] MEDS: NOREPINEPHRINE 8 MG/D5W 250 ML 8 MG/250 ML BAG 37.5 MG IV CONT (03:24)
[2021-09-22 05:03] LABS: Basophils Absolute Auto 0.1 K/mm3 (0.0-0.1); Basophils Percent Auto 0.6 % (0.2-1.2); Eosinophils Percent Auto 0.1 % (0-4.4); Hematocrit 46.3 % (42.0-52.0); Hemoglobin 15.1 g/dL (14.0-18.0); Immature Granulocyte Absolute 0.15 K/mm3 (0.00-0.031); Immature Granulocyte Percent A 0.8 % (0-0.5); Lymphocytes Absolute Auto 1.97 K/mm3 (0.9-3.2); Mean Corpuscular HGB Conc 32.6 g/dl (32-36); Mean Corpuscular Hemoglobin 30.6 pg (26-34); Mean Corpuscular Volume 93.9 fl (80-100); Mean Platelet Volume 11.6 fl (7.4-10.4); Monocytes Absolute Auto 1.6 K/mm3 (0.1-0.6); Monocytes Percent Auto 8.9 % (2.6-8.5); Neutrophils Absolute Auto 14.1 K/mm3 (1.3-6.7); Neutrophils Percent Auto 78.6 % (45.5-73.1); Platelet Count Result 280 k/mm3 (150-375); Red Blood Count 4.93 M/mm3 (4.6-6.20); Red Cell Distribution Width 14.1 % (11.5-14.5); White Blood Count 17.9 K/mm3 (4.5-10.0)
[2021-09-22 05:20] LABS: Alanine Aminotransferase 92 U/L (6-50); Albumin Level 3.4 g/dL (3.5-5.1); Alkaline Phosphatase 53 U/L (38-126); Anion Gap 9 mmol/L (8-16); Aspartate Amino Transferase 56 U/L (17-59); Bilirubin,Total 0.6 mg/dL (0.2-1.3); Blood Urea Nitrogen 35 mg/dL (9-20); Calcium 7.2 mg/dL (8.4-10.2); Carbon Dioxide 27 mmol/L (22-30); Chloride 98 mmol/L (98-107); Estimated CRCL calculation 61 ml/min; Estimated Glomerular Filt Rate 36; Glucose 291 mg/dL (65-110); Potassium 4.7 mmol/L (3.4-5.0); Sodium 134 mmol/L (137-145)
[2021-09-22 05:30] LABS: Alveolar/Arterial O2 Gradient 364.9 mmHg; Base Excess ABG 0.5 mEq/l (+/-2.0); Fractional Inspired Oxygen 80 %; HCO3 ABG 27.5 mEq/l (22.0-26.0); Methemoglobin ABG 0.5 %THb (0-1.5); Oxygen Content ABG 22.4 %vol (16.0-22.0); Oxygen Saturation ABG 98.8 % (95.0-100.0); Oxyhemoglobin 97.8 % THb (90.0-100.0); PCO2 ABG 53.1 mmHg (35.0-45.0); PO2 ABG 149.8 mmHg (80.0-100.0); PO2 FiO2 Ratio Arterial Blood 1.87 %; Reduced Hemoglobin 1.7 %THb (0-5.0); Total Hemoglobin 16.1 g/dL (12.0-18.0); pH ABG 7.332 (7.350-7.450)
[2021-09-22 05:31] LABS: Arterial Blood Gas PEEP 12 cmH2O; Arterial Blood Gas Vent Mode CMV; Arterial Blood Gas Ventilator rate 28 /MIN; Device VENTILATOR; Site Drawn ARTLINE
[2021-09-22 05:32] LABS: Arterial Blood Gas Tidal Volume 450 ml
[2021-09-22 05:44] LABS: Troponin I 0.018 ng/mL (0.000-0.034)
[2021-09-22 05:48] LABS: Partial Thromboplastin Time 30.5 SECONDS (22.3-36.8)
[2021-09-22] MEDS: CENTRAL LINE FLUSH 10 ML IV PUSH ×4 (05:51→20:49)
[2021-09-22 05:52] LABS: INR 1.5; Prothrombin Time 17.6 Seconds (11.1-14.7)
[2021-09-22] MEDS: FENTANYL 2,500MCG/NS250ML(*CRX 2,500 MCG/250 ML BAG 15 MCG IV CONT (08:00)
[2021-09-22] MEDS: ENOXAPARIN 40 MG/0.4 ML SYRINGE SUB-Q (08:12)
[2021-09-22] MEDS: MINERAL OIL/WHITE PETROLATUM OINTMENT 1 APPLIC EACH EYE ×2 (08:13→20:48)
[2021-09-22] MEDS: PANTOPRAZOLE SODIUM IV 40 MG VIAL IV PUSH (08:13)
--- NOTE | 2021-09-22 09:22 | WPDCNINT ---
Assessment and Plan Assessment and plan (1) Acute respiratory failure: Code(s): J96.00 - Acute respiratory failure, unspecified whether with hypoxia or hypercapnia Status: Acute Assessment and Plan: Acute hypoxic Respiratory failure secondary to pulmonary edema, possible ARDS, and/or could community-acquired pneumonia CTA chest on presentation No CT evidence of acute pulmonary embolus. Markedly abnormal lung parenchyma, may reflect edema, atypical/viral infection, acute lung injury (including diffuse alveolar damage/hemorrhage), or combination of the preceding. Patient has lower extremity edema and BNP to 2750 He reported inhalation of some sort of chemical a week ago He also had elevated WBC and productive cough did which could suggest infection and pneumonia Patient did report blood-tinged sputum but no significant blood was seen during intubation and no significant blood seen in tracheal aspiration post intubation from ETT Patient has significant hypoxic and was on high PEEP and FiO2 post intubation. He was chemically paralyzed with Nimbex and then placed in prone position Continue full mechanical ventilation support to prevent hypoxemia/hypercarbia and end organ damage. Continue prone position until later today ABG reviewed and FiO2 is down to 60% this time. Peep is at 12 Portable chest x-ray reviewed He received Lasix yesterday. Hold further Lasix due to shock and acute kidney injury Broad-spectrum antibiotics in the form of vancomycin, Rocephin and doxycycline for community-acquired pneumonia and sepsis Consult pulmonary. Will discuss regarding increasing steroid dose for ARDS Check urine Legionella pneumococcal antigen and mycoplasma IgM Check procalcitonin Check echocardiogram COVID PCR was negative (2) Shock: Code(s): R57.9 - Shock, unspecified Status: Acute Assessment and Plan: Likely a combination of sepsis, cardiogenic, sedation Patient is overall volume overload Continue Levophed and vasopressin titration to maintain map Add stress dose hydrocortisone (3) Sepsis: Code(s): A41.9 - Sepsis, unspecified organism Status: Acute Assessment and Plan: Patient met criteria for sepsis but is lactic acid level was normal Later he became hypotensive Blood and urine cultures have been sent and pending Check sputum culture Check urine Legionella, pneumococcal antigen Check mycoplasma IgM Continue Rocephin, changes with Will to doxycycline since patient is on amiodarone Add vancomycin (4) Atrial fibrillation with rapid ventricular response: Code(s): I48.91 - Unspecified atrial fibrillation Status: Acute Assessment and Plan: Patient was in AFib with RVR he was started on Cardizem infusion which did not help. Later he was started on esmolol infusion which again was in effect. Patient was started on amiodarone infusion and will sedated and intubated. And has converted to normal sinus rhythm now Initially anticoagulation was not started as patient reported coughing up blood to ER physician. Overnight there has not been any significant bloody output from his ET tube orogastric tube. I was planning to art heparin infusion but pulmonology recommends holding for another 24 hours rule out pulmonary hemorrhage. (5) CHF (congestive heart failure): Code(s): I50.9 - Heart failure, unspecified Status: Acute Assessment and Plan: See above (6) Exposure to chemical irritant: Code(s): Z77.098 - Contact with and (suspected) exposure to other hazardous, chiefly nonmedicinal, chemicals Status: Acute Assessment and Plan: See above (7) DM w/o complication type II: Code(s): E11.9 - Type 2 diabetes mellitus without complications Status: Acute Assessment and Plan: Continue sliding scale insulin He is NPO at this time (8) RAJENDRA (acute kidney injury): Code(s): N17.9 - Acute kidney failure, unspecified Status: Acut
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
[2021-09-22 09:52] LABS: Basophils Absolute Auto 0.1 K/mm3 (0.0-0.1); Basophils Percent Auto 0.4 % (0.2-1.2); Eosinophils Absolute Auto 0.1 K/mm3 (0-0.3); Eosinophils Percent Auto 0.7 % (0-4.4); Hematocrit 46.6 % (42.0-52.0); Hemoglobin 15.2 g/dL (14.0-18.0); Immature Granulocyte Absolute 0.11 K/mm3 (0.00-0.031); Immature Granulocyte Percent A 0.6 % (0-0.5); Lymphocytes Percent Auto 9.6 % (18.3-44.2); Mean Corpuscular HGB Conc 32.6 g/dl (32-36); Mean Corpuscular Hemoglobin 30.5 pg (26-34); Mean Corpuscular Volume 93.6 fl (80-100); Mean Platelet Volume 11.9 fl (7.4-10.4); Monocytes Absolute Auto 1.7 K/mm3 (0.1-0.6); Monocytes Percent Auto 9.6 % (2.6-8.5); Neutrophils Absolute Auto 13.9 K/mm3 (1.3-6.7); Neutrophils Percent Auto 79.1 % (45.5-73.1); Platelet Count Result 274 k/mm3 (150-375); Red Blood Count 4.98 M/mm3 (4.6-6.20); Red Cell Distribution Width 14.3 % (11.5-14.5); White Blood Count 17.6 K/mm3 (4.5-10.0)
[2021-09-22 09:53] LABS: Appearance Urine Slightly Cloudy (Clear); Bilirubin Urine 2+ (Negative); Blood Urine 3+ (Negative); Glucose Urine UA Trace mg/dL (Negative); Ketones Urine Negative (Negative); Leukocyte Esterase Ur Negative LEU/UL (Negative); Nitrate Urine Negative (Negative); Protein Urine 2+ mg/dL (Negative); Specific Grav Ur >= 1.030 (1.001-1.035); Urobilinogen Urine 0.2 mg/dL (<2.0)
[2021-09-22 09:55] LABS: Add Urine Microscopic? YES; Color Urine Dark Yellow (Yellow)
[2021-09-22 09:57] LABS: Bacteria Urine Trace /hpf; Hyaline Casts Urine 30-49 /lpf; Mucus Urine Moderate /lpf; RBC Urine >75 /hpf (0-2); Squamous Epithelial Cell Urine Few /hpf (Few); WBC Urine 31-50 /hpf
[2021-09-22 10:02] LABS: INR 1.5; Prothrombin Time 17.1 Seconds (11.1-14.7)
[2021-09-22 10:03] LABS: Partial Thromboplastin Time 34.5 SECONDS (22.3-36.8)
[2021-09-22] MEDS: CALCIUM CHLOR 1,000MG/100ML NS 1,000 MG/100 ML BAG 100 MG IVPB (10:07)
[2021-09-22 10:09] LABS: Creatine Kinase 546 U/L (55-170)
[2021-09-22 10:24] LABS: Procalcitonin 4.9 ng/mL
[2021-09-22] MEDS: DOXYCYCLINE 100 MG/NS 100 ML 100 MG/100 ML BAG IVPB ×2 (10:25→21:00)
[2021-09-22] MEDS: NOREPINEPHRINE 8 MG/D5W 250 ML 8 MG/250 ML BAG 35.63 MG IV CONT (10:28)
[2021-09-22] MEDS: HEPARIN SOD/D5W 100 UNITS/ML 25,000 UNITS/250 ML BAG 15 UNITS IV CONT (10:29)
[2021-09-22 11:36] LABS: Glucose Point of Care 245 mg/dl (65-105)
[2021-09-22 12:45] LABS: Sodium Urine Random 34 meq/L
[2021-09-22] MEDS: PHARMACIST COMMUNICATION ORDER 1 EACH XX (12:45)
[2021-09-22 12:47] LABS: Creatinine Urine 257.4 mg/dL
[2021-09-22 13:39] LABS: Creatine Kinase 603 U/L (55-170)
[2021-09-22] MEDS: PERFLUTREN LIPID MICROSPHERES 1.5 ML VIAL DILUTED TO 10 ML TOTAL VOLUME IV PUSH (13:43)
--- NOTE | 2021-09-22 13:43 | IVDEFINITY ---
Prior to administration of IV Definity the patient was educated on the risks and benefits of the imaging enhancing agent including potential adverse side effects. The patient verbalized understanding. Allergies were verified. No exclusion criteria were identified and at least one of the following inclusion criteria were met: 1) physician request, 2) patient technically difficult to image (per the [place] [employer] guidelines of two or more segments not discernable within the apical view), or 3) questionable left ventricular function. ?
[2021-09-22 14:00] LABS: Rheumatoid Factor 14.4 IU/ML (<12)
[2021-09-22] MEDS: HYDROCORTISONE SODIUM SUCCINATE 100 MG/2 ML VIAL IV PUSH ×2 (15:04→20:48)
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
[2021-09-22 16:52] LABS: Glucose Point of Care 222 mg/dl (65-105)
[2021-09-22] MEDS: NOREPINEPHRINE 8 MG/D5W 250 ML 8 MG/250 ML BAG 26.25 MG IV CONT (17:52)
[2021-09-22] MEDS: MIDAZOLAM 100MG/NS 100ML(*CRX) 100 MG/100 ML BAG IV CONT (19:00)
[2021-09-22 20:51] LABS: Glucose Point of Care 248 mg/dl (65-105)
[2021-09-22 23:33] LABS: Glucose Point of Care 222 mg/dl (65-105)
[2021-09-22] MEDS: FENTANYL 2,500MCG/NS250ML(*CRX 2,500 MCG/250 ML BAG 17.5 MCG IV CONT (23:34)
[2021-09-23] VITALS (56 sets, daily range): BP systolic 96–142; BP diastolic 58–96; PULSE 62–90; RESP 28–34; TEMP 36.6–37.1; O2SAT 90–100
[2021-09-23] MEDS: CISATRACURIUM BESYLATE 200 MG in DEXTROSE 5% 80 ML 11.22 ML IV CONT (01:15)
[2021-09-23 04:03] LABS: Glucose Point of Care 232 mg/dl (65-105)
[2021-09-23] MEDS: INSULIN ASPART (*BKC) 100 UNITS/ML SUB-Q ×3 (04:10→23:17)
[2021-09-23] MEDS: NOREPINEPHRINE 8 MG/D5W 250 ML 8 MG/250 ML BAG 16.88 MG IV CONT (04:41)
[2021-09-23 05:17] LABS: Influenza A QL RT-PCR Negative (Negative); Influenza B QL RT-PCR Negative (Negative)
[2021-09-23 05:44] LABS: Alveolar/Arterial O2 Gradient 157.6 mmHg; Base Excess ABG 2.3 mEq/l (+/-2.0); Carboxyhemoglobin 0.3 % THb (0-2.0); Fractional Inspired Oxygen 40 %; HCO3 ABG 27.3 mEq/l (22.0-26.0); Methemoglobin ABG 0.4 %THb (0-1.5); Oxygen Content ABG 20.4 %vol (16.0-22.0); Oxygen Saturation ABG 95.5 % (95.0-100.0); Oxyhemoglobin 94.4 % THb (90.0-100.0); PCO2 ABG 43.7 mmHg (35.0-45.0); PO2 ABG 77.3 mmHg (80.0-100.0); PO2 FiO2 Ratio Arterial Blood 1.93 %; Reduced Hemoglobin 4.9 %THb (0-5.0); Total Hemoglobin 15.4 g/dL (12.0-18.0); pH ABG 7.414 (7.350-7.450)
[2021-09-23 05:45] LABS: Arterial Blood Gas Vent Mode CMV; Arterial Blood Gas Ventilator rate 28 /MIN; Device VENTILATOR; Site Drawn ARTLINE
[2021-09-23 05:46] LABS: Arterial Blood Gas PEEP 10 cmH2O; Arterial Blood Gas Tidal Volume 450 ml
[2021-09-23] MEDS: CENTRAL LINE FLUSH 10 ML IV PUSH ×4 (05:49→20:59)
[2021-09-23] MEDS: HYDROCORTISONE SODIUM SUCCINATE 100 MG/2 ML VIAL IV PUSH ×3 (05:49→20:58)
[2021-09-23 06:00] LABS: Basophils Percent Auto 0.3 % (0.2-1.2); Eosinophils Percent Auto 0.1 % (0-4.4); Hematocrit 43.2 % (42.0-52.0); Hemoglobin 14.3 g/dL (14.0-18.0); Immature Granulocyte Absolute 0.07 K/mm3 (0.00-0.031); Immature Granulocyte Percent A 0.6 % (0-0.5); Lymphocytes Absolute Auto 1.07 K/mm3 (0.9-3.2); Lymphocytes Percent Auto 8.9 % (18.3-44.2); Mean Corpuscular HGB Conc 33.1 g/dl (32-36); Mean Corpuscular Hemoglobin 30.9 pg (26-34); Mean Corpuscular Volume 93.3 fl (80-100); Mean Platelet Volume 11.6 fl (7.4-10.4); Monocytes Absolute Auto 1.1 K/mm3 (0.1-0.6); Monocytes Percent Auto 8.8 % (2.6-8.5); Neutrophils Absolute Auto 9.8 K/mm3 (1.3-6.7); Neutrophils Percent Auto 81.3 % (45.5-73.1); Platelet Count Result 235 k/mm3 (150-375); Red Blood Count 4.63 M/mm3 (4.6-6.20); Red Cell Distribution Width 13.8 % (11.5-14.5)
[2021-09-23 06:13] LABS: Alanine Aminotransferase 110 U/L (6-50); Albumin Level 3.2 g/dL (3.5-5.1); Alkaline Phosphatase 52 U/L (38-126); Anion Gap 6 mmol/L (8-16); Aspartate Amino Transferase 58 U/L (17-59); Bilirubin,Total 0.4 mg/dL (0.2-1.3); Blood Urea Nitrogen 37 mg/dL (9-20); Calcium 7.6 mg/dL (8.4-10.2); Carbon Dioxide 28 mmol/L (22-30); Chloride 99 mmol/L (98-107); Estimated CRCL calculation 66 ml/min; Estimated Glomerular Filt Rate 38; Glucose 245 mg/dL (65-110); Magnesium 2.3 mg/dL (1.6-2.3); Phosphorus 4.6 mg/dL (2.5-4.5); Potassium 4.1 mmol/L (3.4-5.0); Sodium 133 mmol/L (137-145)
[2021-09-23 07:24] LABS: Glucose Point of Care 233 mg/dl (65-105)
[2021-09-23] MEDS: MIDAZOLAM 100MG/NS 100ML(*CRX) 100 MG/100 ML BAG 6 MG IV CONT (08:05)
--- NOTE | 2021-09-23 09:11 | PHAR ---
Heparin reentered 09/23/21 due to administration issues - same orders per RN
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
[2021-09-23] MEDS: INSULIN GLARGINE (*BKC) 100 UNITS/ML 20 UNITS SUB-Q (09:31)
[2021-09-23] MEDS: MINERAL OIL/WHITE PETROLATUM OINTMENT 1 APPLIC EACH EYE ×2 (09:32→20:34)
[2021-09-23] MEDS: DOXYCYCLINE 100 MG/NS 100 ML 100 MG/100 ML BAG IVPB ×2 (09:32→20:34)
[2021-09-23] MEDS: PANTOPRAZOLE SODIUM IV 40 MG VIAL IV PUSH (09:32)
[2021-09-23 09:37] LABS: INR 1.4; Prothrombin Time 16.4 Seconds (11.1-14.7)
[2021-09-23 09:38] LABS: Partial Thromboplastin Time 34.5 SECONDS (22.3-36.8)
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
[2021-09-23] MEDS: MIDAZOLAM HCL (*CRX) 2 MG/2 ML VIAL 5 MG IV PUSH (09:57)
[2021-09-23] MEDS: PROPOFOL IV EMULSION 100 ML 4.57 MG IV CONT (09:58)
[2021-09-23] MEDS: HEPARIN SOD/D5W 100 UNITS/ML 25,000 UNITS/250 ML BAG 15 UNITS IV CONT (10:05)
[2021-09-23] MEDS: SODIUM CHLORIDE 0.9% IV 500 ML IV CONT (10:50)
[2021-09-23] MEDS: SODIUM CHLORIDE 0.9% IV 1,000 ML 100 ML IV CONT (10:50)
--- NOTE | 2021-09-23 11:47 | PCFNICU ---
ICU Rounding Note: Pt current nutrition is Glucerna 1.2 at 20 ml/hr. Nutrition recommendation: Recommend goal rate at 60 ml/hr at this time due to propofol Last recorded weight is 152.3 kg, up from 144.7 kg on admit. Bowel Motility:No Bm reported. Labs Reviewed:Glu 245, BUN 37, Cr 1.9,Alb 3.2,Na 133 Meds Noted:Propofol 10 mics/9.14 ml/me=445 kcals, Heparin, Rocephin, Vancomycin, NS, Levophed, Lantus, NovoLog, Fentanyl. Skin: WNL Additional Notes: Patient remains on mechanical ventilator, tube feedings starting today of Glucerna 1.2 at 20 ml/hr advancing to 50 ml/hr. With current propofol infusion at 10 mics would recommend tube feeding goal rate at 65 ml/hr providing 1957 kcals/86 gm protein/1151 ml water. Free water flush 30 ml q 4 hours. Following daily in ICU rounds and reassessing every Monday and Monday.
[2021-09-23 12:46] LABS: Glucose Point of Care 179 mg/dl (65-105)
[2021-09-23] MEDS: FENTANYL 2,500MCG/NS250ML(*CRX 2,500 MCG/250 ML BAG 17.5 MCG IV CONT (14:28)
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
[2021-09-23 16:32] LABS: Partial Thromboplastin Time 37.2 SECONDS (22.3-36.8)
[2021-09-23 16:33] LABS: Glucose Point of Care 171 mg/dl (65-105)
[2021-09-23] MEDS: HEPARIN SODIUM 5,000 UNITS/ML VIAL 8500 UNITS IV PUSH (16:37)
[2021-09-23] MEDS: PROPOFOL IV EMULSION 100 ML 9.14 MG IV CONT (19:11)
[2021-09-23 20:58] LABS: Glucose Point of Care 187 mg/dl (65-105)
[2021-09-23 21:33] LABS: Partial Thromboplastin Time 70.6 SECONDS (22.3-36.8)
[2021-09-23 23:14] LABS: Glucose Point of Care 227 mg/dl (65-105)
[2021-09-23] MEDS: HEPARIN SOD/D5W 100 UNITS/ML 25,000 UNITS/250 ML BAG 19 UNITS IV CONT (23:16)
[2021-09-24] VITALS (38 sets, daily range): BP systolic 98–121; BP diastolic 55–65; PULSE 58–72; RESP 28–32; TEMP 36.4–36.8; O2SAT 92–97
[2021-09-24] MEDS: MIDAZOLAM 100MG/NS 100ML(*CRX) 100 MG/100 ML BAG 10 MG IV CONT ×3 (02:17→23:50)
[2021-09-24] MEDS: FENTANYL 2,500MCG/NS250ML(*CRX 2,500 MCG/250 ML BAG 17.5 MCG IV CONT (04:18)
[2021-09-24 04:32] LABS: Hematocrit 40.1 % (42.0-52.0); Hemoglobin 13.5 g/dL (14.0-18.0); Mean Corpuscular HGB Conc 33.7 g/dl (32-36); Mean Corpuscular Hemoglobin 31.3 pg (26-34); Mean Corpuscular Volume 92.8 fl (80-100); Mean Platelet Volume 11.2 fl (7.4-10.4); Platelet Count Result 215 k/mm3 (150-375); Red Blood Count 4.32 M/mm3 (4.6-6.20)
[2021-09-24] MEDS: CENTRAL LINE FLUSH 10 ML IV PUSH ×4 (04:44→20:38)
[2021-09-24 04:45] LABS: Alanine Aminotransferase 86 U/L (6-50); Alkaline Phosphatase 44 U/L (38-126); Anion Gap 5 mmol/L (8-16); Aspartate Amino Transferase 37 U/L (17-59); Bilirubin,Total 0.3 mg/dL (0.2-1.3); Blood Urea Nitrogen 39 mg/dL (9-20); Calcium 7.3 mg/dL (8.4-10.2); Carbon Dioxide 27 mmol/L (22-30); Chloride 101 mmol/L (98-107); Estimated CRCL calculation 71 ml/min; Estimated Glomerular Filt Rate 40; Glucose 167 mg/dL (65-110); Magnesium 2.6 mg/dL (1.6-2.3); Potassium 4.4 mmol/L (3.4-5.0); Sodium 133 mmol/L (137-145)
[2021-09-24] MEDS: HYDROCORTISONE SODIUM SUCCINATE 100 MG/2 ML VIAL IV PUSH ×3 (04:45→20:38)
[2021-09-24 04:50] LABS: Partial Thromboplastin Time 33.7 SECONDS (22.3-36.8)
[2021-09-24 05:15] LABS: Alveolar/Arterial O2 Gradient 277.7 mmHg; Base Excess ABG 1.8 mEq/l (+/-2.0); Carboxyhemoglobin 0.3 % THb (0-2.0); Device VENTILATOR; Fractional Inspired Oxygen 55 %; HCO3 ABG 27.5 mEq/l (22.0-26.0); Methemoglobin ABG 0.4 %THb (0-1.5); Oxygen Saturation ABG 91.2 % (95.0-100.0); Oxyhemoglobin 89.8 % THb (90.0-100.0); PCO2 ABG 47.3 mmHg (35.0-45.0); PO2 ABG 61.8 mmHg (80.0-100.0); PO2 FiO2 Ratio Arterial Blood 1.12 %; Reduced Hemoglobin 9.5 %THb (0-5.0); Site Drawn ARTLINE; Total Hemoglobin 15.1 g/dL (12.0-18.0); pH ABG 7.383 (7.350-7.450)
[2021-09-24 05:16] LABS: Arterial Blood Gas PEEP 12 cmH2O; Arterial Blood Gas Tidal Volume 450 ml; Arterial Blood Gas Vent Mode CMV; Arterial Blood Gas Ventilator rate 28 /MIN
[2021-09-24] MEDS: PROPOFOL IV EMULSION 100 ML 4.57 MG IV CONT (07:53)
[2021-09-24 09:21] LABS: Glucose Point of Care 199 mg/dl (65-105)
[2021-09-24] MEDS: PANTOPRAZOLE SODIUM IV 40 MG VIAL IV PUSH (09:28)
[2021-09-24] MEDS: INSULIN GLARGINE (*BKC) 100 UNITS/ML 20 UNITS SUB-Q (09:37)
[2021-09-24] MEDS: DOXYCYCLINE 100 MG/NS 100 ML 100 MG/100 ML BAG IVPB ×2 (09:38→20:48)
[2021-09-24] MEDS: MINERAL OIL/WHITE PETROLATUM OINTMENT 1 APPLIC EACH EYE ×2 (09:39→20:38)
[2021-09-24 09:52] LABS: Partial Thromboplastin Time 40.9 SECONDS (22.3-36.8)
[2021-09-24] MEDS: CALCIUM GLUC 1,000 MG/NS 50 ML 1,000 MG/50 ML BAG 100 MG IVPB (09:59)
[2021-09-24] MEDS: HEPARIN SODIUM 5,000 UNITS/ML VIAL 8500 UNITS IV PUSH (10:04)
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
[2021-09-24] MEDS: INSULIN ASPART (*BKC) 100 UNITS/ML SUB-Q ×2 (12:35→23:52)
[2021-09-24 12:49] LABS: Glucose Point of Care 202 mg/dl (65-105)
--- NOTE | 2021-09-24 13:11 | PCNFU ---
Nutrition Follow-Up Complete: Inadequate Oral Intake as related to mechanical ventilation as evidenced by NPO. Goal: Meet estimated nutritional needs Patient is progressing towards goal. We will continue current goal Pt current nutrition is Glucerna 1.2 at 50 ml/hr Last recorded weight is 157 kg, up from 144.7 kg on admit. Bowel Motility: No BM, bowel sounds active. Labs Reviewed:Glu 167, BUN 39, Cr 1.8,Alb 3.0, Na 133, Hct 40.1,Hgb 13.5 Meds Noted:Propofol 10 mics/4.57 ml/bp=562 kcals, Rocephin, Vancomycin, NS, Levophed, Lantus, NovoLog, Fentanyl. Skin: WNL Additional Notes: Patient remains on mechanical vent and tube feedings of Glucerna 1.2 at 50 ml/hr. Propofol infusion is providing an additional 121 kcals. Total kcal intake 1441 kcals/66 gms protein. tube feedings are meeting 77% of caloric needs and 64% of protein needs. Recommend increasing tube feedings to goal rate of 65 ml/hr. Monitoring: In ICU rounds and reassessing every Monday and Monday.
[2021-09-24] MEDS: ALBUMIN HUMAN 25% 25 GM/100 ML 100 ML IVPB ×3 (13:16→23:52)
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
[2021-09-24 16:27] LABS: Partial Thromboplastin Time 107.7 SECONDS (22.3-36.8)
[2021-09-24] MEDS: HEPARIN SOD/D5W 100 UNITS/ML 25,000 UNITS/250 ML BAG 23 UNITS IV CONT (16:47)
[2021-09-24 17:04] LABS: Vancomycin Trough 10.6 ug/mL (10.0-20.0)
[2021-09-24] MEDS: PROPOFOL IV EMULSION 100 ML 9.14 MG IV CONT (17:23)
[2021-09-24] MEDS: FENTANYL 2,500MCG/NS250ML(*CRX 2,500 MCG/250 ML BAG 20 MCG IV CONT (17:24)
[2021-09-24 17:30] LABS: Glucose Point of Care 188 mg/dl (65-105)
[2021-09-24 19:22] LABS: Pneumococcal Antigen Urine Not Detected (Not Detected)
[2021-09-24 19:22] LABS: Pneumococcal Antigen Urine Not Detected (Not Detected)
[2021-09-24 20:14] LABS: Mycoplasma IgM Antibody Titer 71 U/mL (<770)
[2021-09-24 20:46] LABS: Glucose Point of Care 189 mg/dl (65-105)
[2021-09-25] VITALS (43 sets, daily range): BP systolic 109–134; BP diastolic 58–79; PULSE 58–92; RESP 28–35; TEMP 36.6–37.3; O2SAT 91–97
[2021-09-25 00:12] LABS: Glucose Point of Care 203 mg/dl (65-105)
[2021-09-25] MEDS: HEPARIN SODIUM 5,000 UNITS/ML VIAL 8500 UNITS IV PUSH (00:24)
[2021-09-25] MEDS: HEPARIN SOD/D5W 100 UNITS/ML 25,000 UNITS/250 ML BAG 25 UNITS IV CONT ×2 (04:50→15:55)
[2021-09-25] MEDS: PROPOFOL IV EMULSION 100 ML 13.71 MG IV CONT ×2 (04:51→07:22)
[2021-09-25 05:40] LABS: Base Excess ABG 3.5 mEq/l (+/-2.0); Carboxyhemoglobin 0.3 % THb (0-2.0); Device VENTILATOR; Fractional Inspired Oxygen 55 %; HCO3 ABG 28.8 mEq/l (22.0-26.0); Methemoglobin ABG 0.4 %THb (0-1.5); Oxygen Content ABG 21.2 %vol (16.0-22.0); Oxygen Saturation ABG 96.4 % (95.0-100.0); Oxyhemoglobin 94.8 % THb (90.0-100.0); PCO2 ABG 45.9 mmHg (35.0-45.0); PO2 ABG 84.1 mmHg (80.0-100.0); PO2 FiO2 Ratio Arterial Blood 1.53 %; Reduced Hemoglobin 4.5 %THb (0-5.0); Site Drawn ARTLINE; Total Hemoglobin 15.9 g/dL (12.0-18.0); pH ABG 7.416 (7.350-7.450)
[2021-09-25 05:41] LABS: Arterial Blood Gas PEEP 12 cmH2O; Arterial Blood Gas Tidal Volume 450 ml; Arterial Blood Gas Vent Mode CMV; Arterial Blood Gas Ventilator rate 28 /MIN
[2021-09-25 06:21] LABS: Hematocrit 40.5 % (42.0-52.0); Hemoglobin 12.9 g/dL (14.0-18.0); Mean Corpuscular HGB Conc 31.9 g/dl (32-36); Mean Corpuscular Hemoglobin 30.7 pg (26-34); Mean Corpuscular Volume 96.4 fl (80-100); Mean Platelet Volume 11.4 fl (7.4-10.4); Platelet Count Result 207 k/mm3 (150-375); Red Cell Distribution Width 14.2 % (11.5-14.5); White Blood Count 7.7 K/mm3 (4.5-10.0)
[2021-09-25 06:41] LABS: Partial Thromboplastin Time 109.3 SECONDS (22.3-36.8)
[2021-09-25 06:49] LABS: Alanine Aminotransferase 59 U/L (6-50); Albumin Level 3.5 g/dL (3.5-5.1); Alkaline Phosphatase 42 U/L (38-126); Anion Gap 5 mmol/L (8-16); Aspartate Amino Transferase 24 U/L (17-59); Bilirubin,Total 0.2 mg/dL (0.2-1.3); Blood Urea Nitrogen 35 mg/dL (9-20); Calcium 7.8 mg/dL (8.4-10.2); Carbon Dioxide 29 mmol/L (22-30); Chloride 103 mmol/L (98-107); Estimated CRCL calculation 79 ml/min; Estimated Glomerular Filt Rate 46; Glucose 164 mg/dL (65-110); Magnesium 2.9 mg/dL (1.6-2.3); Potassium 4.2 mmol/L (3.4-5.0); Sodium 137 mmol/L (137-145)
[2021-09-25] MEDS: ALBUMIN HUMAN 25% 25 GM/100 ML 100 ML IVPB ×3 (06:58→17:12)
[2021-09-25] MEDS: CENTRAL LINE FLUSH 10 ML IV PUSH ×3 (06:58→20:28)
[2021-09-25] MEDS: HYDROCORTISONE SODIUM SUCCINATE 100 MG/2 ML VIAL IV PUSH ×3 (06:59→20:28)
[2021-09-25] MEDS: FENTANYL 2,500MCG/NS250ML(*CRX 2,500 MCG/250 ML BAG 20 MCG IV CONT ×2 (07:22→19:02)
[2021-09-25] MEDS: DOXYCYCLINE 100 MG/NS 100 ML 100 MG/100 ML BAG IVPB ×2 (08:25→20:27)
[2021-09-25] MEDS: INSULIN GLARGINE (*BKC) 100 UNITS/ML 20 UNITS SUB-Q (08:28)
[2021-09-25] MEDS: PANTOPRAZOLE SODIUM IV 40 MG VIAL IV PUSH (08:28)
[2021-09-25] MEDS: polyethylene glycoL 3350 17 GM POWD.PACK PO (08:29)
[2021-09-25] MEDS: MINERAL OIL/WHITE PETROLATUM OINTMENT 1 APPLIC EACH EYE ×2 (08:29→20:28)
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
[2021-09-25] MEDS: MIDAZOLAM 100MG/NS 100ML(*CRX) 100 MG/100 ML BAG 10 MG IV CONT ×2 (09:31→19:01)
[2021-09-25] MEDS: FUROSEMIDE INJ 40 MG/4 ML VIAL IV PUSH (10:05)
[2021-09-25] MEDS: INSULIN ASPART (*BKC) 100 UNITS/ML SUB-Q (12:01)
[2021-09-25] MEDS: PROPOFOL IV EMULSION 100 ML 31.98 MG IV CONT ×3 (12:34→18:15)
[2021-09-25 14:09] LABS: Partial Thromboplastin Time 68.3 SECONDS (22.3-36.8)
[2021-09-25] MEDS: HEPARIN SODIUM 5,000 UNITS/ML VIAL 4500 UNITS IV PUSH (15:06)
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
[2021-09-25 20:38] LABS: Glucose Point of Care 174 mg/dl (65-105)
[2021-09-25] MEDS: PROPOFOL IV EMULSION 100 ML 36.55 MG IV CONT ×2 (21:07→23:36)
[2021-09-25 22:13] LABS: Partial Thromboplastin Time 89.7 SECONDS (22.3-36.8)
[2021-09-26] VITALS (52 sets, daily range): BP systolic 130–147; BP diastolic 66–75; PULSE 53–62; RESP 28; TEMP 36.4–37.2; O2SAT 90–95
[2021-09-26] MEDS: ALBUMIN HUMAN 25% 25 GM/100 ML 100 ML IVPB ×4 (00:11→17:47)
[2021-09-26 00:19] LABS: Glucose Point of Care 189 mg/dl (65-105)
[2021-09-26] MEDS: HEPARIN SOD/D5W 100 UNITS/ML 25,000 UNITS/250 ML BAG 25 UNITS IV CONT ×3 (02:06→21:34)
[2021-09-26] MEDS: PROPOFOL IV EMULSION 100 ML 36.55 MG IV CONT ×8 (02:21→21:01)
[2021-09-26] MEDS: CENTRAL LINE FLUSH 10 ML IV PUSH ×3 (05:29→21:40)
[2021-09-26 05:45] LABS: Hematocrit 39.6 % (42.0-52.0); Hemoglobin 12.4 g/dL (14.0-18.0); Mean Corpuscular HGB Conc 31.3 g/dl (32-36); Mean Corpuscular Hemoglobin 30.3 pg (26-34); Mean Corpuscular Volume 96.8 fl (80-100); Mean Platelet Volume 11.3 fl (7.4-10.4); Platelet Count Result 199 k/mm3 (150-375); Red Blood Count 4.09 M/mm3 (4.6-6.20); Red Cell Distribution Width 14.2 % (11.5-14.5)
[2021-09-26 05:47] LABS: Alveolar/Arterial O2 Gradient 233.3 mmHg; Base Excess ABG 1.9 mEq/l (+/-2.0); Carboxyhemoglobin 0.3 % THb (0-2.0); Fractional Inspired Oxygen 50 %; Methemoglobin ABG 0.4 %THb (0-1.5); Oxygen Content ABG 17.9 %vol (16.0-22.0); Oxygen Saturation ABG 92.7 % (95.0-100.0); Oxyhemoglobin 91.5 % THb (90.0-100.0); PCO2 ABG 49.6 mmHg (35.0-45.0); PO2 ABG 67.4 mmHg (80.0-100.0); PO2 FiO2 Ratio Arterial Blood 1.35 %; Reduced Hemoglobin 7.8 %THb (0-5.0); Total Hemoglobin 13.9 g/dL (12.0-18.0); pH ABG 7.369 (7.350-7.450)
[2021-09-26 05:53] LABS: Device VENTILATOR; Site Drawn ARTLINE
[2021-09-26 05:54] LABS: Arterial Blood Gas PEEP 12 cmH2O; Arterial Blood Gas Tidal Volume 450 ml; Arterial Blood Gas Vent Mode CMV; Arterial Blood Gas Ventilator rate 28 /MIN
[2021-09-26 05:57] LABS: Alanine Aminotransferase 43 U/L (6-50); Albumin Level 4.2 g/dL (3.5-5.1); Alkaline Phosphatase 43 U/L (38-126); Anion Gap 8 mmol/L (8-16); Aspartate Amino Transferase 25 U/L (17-59); Bilirubin,Total 0.2 mg/dL (0.2-1.3); Blood Urea Nitrogen 43 mg/dL (9-20); Carbon Dioxide 29 mmol/L (22-30); Chloride 100 mmol/L (98-107); Estimated CRCL calculation 61 ml/min; Estimated Glomerular Filt Rate 34; Glucose 183 mg/dL (65-110); Magnesium 3.1 mg/dL (1.6-2.3); Potassium 4.4 mmol/L (3.4-5.0); Sodium 137 mmol/L (137-145)
[2021-09-26 06:01] LABS: Partial Thromboplastin Time 81.1 SECONDS (22.3-36.8)
[2021-09-26] MEDS: MIDAZOLAM 100MG/NS 100ML(*CRX) 100 MG/100 ML BAG 10 MG IV CONT ×2 (06:10→16:10)
[2021-09-26] MEDS: HYDROCORTISONE SODIUM SUCCINATE 100 MG/2 ML VIAL IV PUSH (06:14)
[2021-09-26] MEDS: FENTANYL 2,500MCG/NS250ML(*CRX 2,500 MCG/250 ML BAG 20 MCG IV CONT ×2 (07:56→20:55)
[2021-09-26] MEDS: polyethylene glycoL 3350 17 GM POWD.PACK PO (08:03)
[2021-09-26] MEDS: DOXYCYCLINE 100 MG/NS 100 ML 100 MG/100 ML BAG IVPB ×2 (08:03→21:43)
[2021-09-26] MEDS: PANTOPRAZOLE SODIUM IV 40 MG VIAL IV PUSH (08:03)
[2021-09-26] MEDS: MINERAL OIL/WHITE PETROLATUM OINTMENT 1 APPLIC EACH EYE ×2 (08:04→21:37)
[2021-09-26] MEDS: BISACODYL 10 MG SUPPOSITORY RECTAL (08:06)
[2021-09-26] MEDS: INSULIN GLARGINE (*BKC) 100 UNITS/ML 20 UNITS SUB-Q (08:06)
[2021-09-26 08:32] LABS: Glucose Point of Care 190 mg/dl (65-105)
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
[2021-09-26 11:35] LABS: Glucose Point of Care 155 mg/dl (65-105)
[2021-09-26 11:35] LABS: Glucose Point of Care 162 mg/dl (65-105)
[2021-09-26 11:35] LABS: Glucose Point of Care 209 mg/dl (65-105)
[2021-09-26 12:10] LABS: Aldolase 15.1 U/L (<=8.1); Anti Cyclic Citrullinated Pept <16 Units (<20)
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
[2021-09-26] MEDS: METOCLOPRAMIDE HCL 10 MG TABLET FEED TUBE ×2 (16:20→21:37)
[2021-09-26 16:49] LABS: Glucose Point of Care 149 mg/dl (65-105)
[2021-09-27] VITALS (40 sets, daily range): BP systolic 117–139; BP diastolic 56–72; PULSE 53–67; RESP 23–28; TEMP 36.1–36.5; O2SAT 91–96
[2021-09-27] MEDS: PROPOFOL IV EMULSION 100 ML 36.55 MG IV CONT ×8 (00:18→21:11)
[2021-09-27] MEDS: ALBUMIN HUMAN 25% 25 GM/100 ML 100 ML IVPB ×4 (00:38→17:03)
[2021-09-27] MEDS: MIDAZOLAM 100MG/NS 100ML(*CRX) 100 MG/100 ML BAG 10 MG IV CONT ×2 (03:20→12:18)
[2021-09-27 05:34] LABS: Hematocrit 37.8 % (42.0-52.0); Hemoglobin 12.2 g/dL (14.0-18.0); Mean Corpuscular HGB Conc 32.3 g/dl (32-36); Mean Corpuscular Volume 96.2 fl (80-100); Mean Platelet Volume 11.7 fl (7.4-10.4); Platelet Count Result 181 k/mm3 (150-375); Red Blood Count 3.93 M/mm3 (4.6-6.20); Red Cell Distribution Width 14.6 % (11.5-14.5); White Blood Count 8.3 K/mm3 (4.5-10.0)
[2021-09-27 05:34] LABS: HCO3 ABG 27.6 mEq/l (22.0-26.0); PCO2 ABG 45.5 mmHg (35.0-45.0); PO2 ABG 66.7 mmHg (80.0-100.0)
[2021-09-27 05:35] LABS: Base Excess ABG 2.2 mEq/l (+/-2.0); Oxygen Saturation ABG 93.2 % (95.0-100.0); Total Hemoglobin 13.4 g/dL (12.0-18.0)
[2021-09-27 05:36] LABS: Oxygen Content ABG 17.3 %vol (16.0-22.0)
[2021-09-27 05:37] LABS: Alveolar/Arterial O2 Gradient 0.3 mmHg
[2021-09-27 05:38] LABS: Carboxyhemoglobin 0.3 % THb (0-2.0); Methemoglobin ABG 0.3 %THb (0-1.5); Oxyhemoglobin 91.6 % THb (90.0-100.0); PO2 FiO2 Ratio Arterial Blood 1.11 %; Reduced Hemoglobin 7.8 %THb (0-5.0)
[2021-09-27 05:39] LABS: Arterial Blood Gas Vent Mode CMV; Arterial Blood Gas Ventilator rate 28 /MIN; Device VENTILATOR; Fractional Inspired Oxygen 60 %; Site Drawn ARTLINE
[2021-09-27 05:40] LABS: Arterial Blood Gas PEEP 12 cmH2O; Arterial Blood Gas Tidal Volume 450 ml
[2021-09-27 05:47] LABS: Partial Thromboplastin Time 82.8 SECONDS (22.3-36.8)
[2021-09-27 05:57] LABS: Alanine Aminotransferase 32 U/L (6-50); Albumin Level 3.9 g/dL (3.5-5.1); Alkaline Phosphatase 38 U/L (38-126); Anion Gap 9 mmol/L (8-16); Aspartate Amino Transferase 32 U/L (17-59); Bilirubin,Total 0.2 mg/dL (0.2-1.3); Blood Urea Nitrogen 60 mg/dL (9-20); Calcium 7.7 mg/dL (8.4-10.2); Carbon Dioxide 30 mmol/L (22-30); Chloride 97 mmol/L (98-107); Estimated CRCL calculation 46 ml/min; Estimated Glomerular Filt Rate 24; Glucose 123 mg/dL (65-110); Magnesium 3.3 mg/dL (1.6-2.3); Potassium 3.9 mmol/L (3.4-5.0); Sodium 136 mmol/L (137-145)
[2021-09-27] MEDS: HEPARIN SOD/D5W 100 UNITS/ML 25,000 UNITS/250 ML BAG 25 UNITS IV CONT ×2 (07:12→17:10)
[2021-09-27] MEDS: METOCLOPRAMIDE HCL 10 MG TABLET FEED TUBE ×2 (07:16→11:15)
[2021-09-27] MEDS: CENTRAL LINE FLUSH 10 ML IV PUSH ×4 (07:17→21:16)
[2021-09-27] MEDS: INSULIN GLARGINE (*BKC) 100 UNITS/ML 20 UNITS SUB-Q (08:01)
[2021-09-27] MEDS: DOXYCYCLINE 100 MG/NS 100 ML 100 MG/100 ML BAG IVPB ×2 (08:02→21:13)
[2021-09-27] MEDS: PANTOPRAZOLE SODIUM IV 40 MG VIAL IV PUSH (08:03)
[2021-09-27] MEDS: HYDROCORTISONE SODIUM SUCCINATE 100 MG/2 ML VIAL IV PUSH (08:03)
[2021-09-27] MEDS: MINERAL OIL/WHITE PETROLATUM OINTMENT 1 APPLIC EACH EYE ×2 (08:03→21:15)
[2021-09-27] MEDS: polyethylene glycoL 3350 17 GM POWD.PACK PO (08:10)
[2021-09-27] MEDS: SODIUM CHLORIDE 0.9% IV 1,000 ML 100 ML IV CONT ×2 (08:19→20:54)
[2021-09-27] MEDS: SODIUM CHLORIDE 0.9% IV 1,000 ML 999 ML IV CONT (08:19)
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
[2021-09-27] MEDS: CALCIUM GLUC 2,000 MG/NS 100ML 2,000 MG/100 ML BAG 100 MG IVPB (08:20)
[2021-09-27 08:23] LABS: Creatine Kinase 282 U/L (55-170)
[2021-09-27 08:57] LABS: Triglycerides 676 mg/dL (<150)
[2021-09-27] MEDS: FENTANYL 2,500MCG/NS250ML(*CRX 2,500 MCG/250 ML BAG 20 MCG IV CONT ×2 (08:59→21:36)
[2021-09-27 10:54] LABS: Triglycerides 175 mg/dL (<150)
[2021-09-27 11:06] LABS: Glucose Point of Care 151 mg/dl (65-105)
[2021-09-27 11:06] LABS: Glucose Point of Care 175 mg/dl (65-105)
[2021-09-27 11:07] LABS: Glucose Point of Care 112 mg/dl (65-105)
[2021-09-27 11:07] LABS: Glucose Point of Care 155 mg/dl (65-105)
[2021-09-27 11:13] LABS: Glucose Point of Care 140 mg/dl (65-105)
--- NOTE | 2021-09-27 12:10 | PCFNICU ---
ICU Rounding Note: Pt current nutrition is Glucerna 1.2 at 65 ml/hr over 22 hours. Last recorded weight is 157.8 kg, up from 144.7 kg on admit. Bowel Motility:+BM reported 09/26 Labs Reviewed:Glu 123, GFR 24, Na 136, Glu 123, BUN 60 Meds Noted:Propofol 30 mics/27.41 ml/hr= 724 kcals, Rocephin, Vancomycin, NS, Levophed, Lantus, NovoLog, Fentanyl, Miralax, Protonix. Skin: WNL Additional Notes: Patient remains on mechanical vent and tube feeds of Glucerna 1.2 at 65 ml/hr over 22 hours. Current tube feeding is providing 1716 kcals/86 gms protein/1151 ml water. Free water flush 30 ml q 4 hours. Propofol Infusion is currently providing an additional 724 kcals. Total nutrition at this time: 2440 kcals/86 gms protein/1151 ml water. Agree with diet orders at this time. Will continue to monitor propofol infusion for any tube feeding rate changes. Monitoring: Following daily in ICU rounds and reassessing every Monday and Monday.
[2021-09-27] MEDS: PROPOFOL IV EMULSION 100 ML 45.69 MG IV CONT (12:17)
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
[2021-09-27 15:48] LABS: Glucose Point of Care 137 mg/dl (65-105)
[2021-09-27] MEDS: METOCLOPRAMIDE HCL 10 MG/10 ML SOLN UDC FEED TUBE (17:11)
[2021-09-27 19:34] LABS: Legionella pneumophila Ag Ur Not Detected (Not Detected)
[2021-09-27 19:34] LABS: Legionella pneumophila Ag Ur Not Detected (Not Detected)
[2021-09-27 21:57] LABS: ANCA Screen Negative (Negative)
[2021-09-28] VITALS (21 sets, daily range): BP systolic 121–166; BP diastolic 61–80; PULSE 53–69; RESP 28; TEMP 36.1–37.2; O2SAT 92–98
[2021-09-28] MEDS: MIDAZOLAM 100MG/NS 100ML(*CRX) 100 MG/100 ML BAG 10 MG IV CONT ×2 (00:29→09:35)
[2021-09-28] MEDS: METOCLOPRAMIDE HCL 10 MG/10 ML SOLN UDC FEED TUBE ×3 (00:30→12:59)
[2021-09-28] MEDS: ALBUMIN HUMAN 25% 25 GM/100 ML 100 ML IVPB ×3 (00:31→12:26)
[2021-09-28] MEDS: PROPOFOL IV EMULSION 100 ML 36.55 MG IV CONT ×3 (00:32→04:38)
[2021-09-28] MEDS: HEPARIN SOD/D5W 100 UNITS/ML 25,000 UNITS/250 ML BAG 25 UNITS IV CONT ×2 (04:37→14:14)
[2021-09-28 05:00] LABS: Glucose Point of Care 121 mg/dl (65-105)
[2021-09-28 05:00] LABS: Glucose Point of Care 133 mg/dl (65-105)
[2021-09-28 05:00] LABS: Glucose Point of Care 135 mg/dl (65-105)
[2021-09-28 05:03] LABS: Hematocrit 37.2 % (42.0-52.0); Hemoglobin 11.9 g/dL (14.0-18.0); Mean Corpuscular Hemoglobin 31.1 pg (26-34); Mean Corpuscular Volume 97.1 fl (80-100); Mean Platelet Volume 11.7 fl (7.4-10.4); Platelet Count Result 179 k/mm3 (150-375); Red Blood Count 3.83 M/mm3 (4.6-6.20); Red Cell Distribution Width 14.9 % (11.5-14.5)
[2021-09-28 05:05] LABS: Alveolar/Arterial O2 Gradient 298.9 mmHg; Base Excess ABG 0.9 mEq/l (+/-2.0); Fractional Inspired Oxygen 60 %; HCO3 ABG 26.6 mEq/l (22.0-26.0); Methemoglobin ABG 0.4 %THb (0-1.5); Oxygen Content ABG 18.7 %vol (16.0-22.0); Oxygen Saturation ABG 95.1 % (95.0-100.0); Oxyhemoglobin 94.6 % THb (90.0-100.0); PCO2 ABG 46.6 mmHg (35.0-45.0); PO2 ABG 77.6 mmHg (80.0-100.0); PO2 FiO2 Ratio Arterial Blood 1.29 %; pH ABG 7.374 (7.350-7.450)
[2021-09-28] MEDS: CENTRAL LINE FLUSH 10 ML IV PUSH (05:07)
[2021-09-28 05:13] LABS: Device VENTILATOR; Site Drawn ARTLINE
[2021-09-28 05:14] LABS: Alanine Aminotransferase 29 U/L (6-50); Albumin Level 4.1 g/dL (3.5-5.1); Alkaline Phosphatase 36 U/L (38-126); Anion Gap 8 mmol/L (8-16); Aspartate Amino Transferase 24 U/L (17-59); Bilirubin,Total 0.3 mg/dL (0.2-1.3); Blood Urea Nitrogen 63 mg/dL (9-20); Carbon Dioxide 29 mmol/L (22-30); Chloride 103 mmol/L (98-107); Creatine Kinase 236 U/L (55-170); Estimated CRCL calculation 58 ml/min; Estimated Glomerular Filt Rate 32; Glucose 117 mg/dL (65-110); Magnesium 3.1 mg/dL (1.6-2.3); Potassium 4.4 mmol/L (3.4-5.0); Sodium 140 mmol/L (137-145)
[2021-09-28 05:14] LABS: Arterial Blood Gas PEEP 12 cmH2O; Arterial Blood Gas Tidal Volume 450 ml; Arterial Blood Gas Vent Mode CMV; Arterial Blood Gas Ventilator rate 28 /MIN
[2021-09-28 07:13] LABS: Partial Thromboplastin Time 74.1 SECONDS (22.3-36.8)
[2021-09-28 07:21] LABS: Glucose Point of Care 123 mg/dl (65-105)
--- NOTE | 2021-09-28 08:02 | PM.PNPUL ---
Progress Note: A&P Assessment and Plan (1) Acute respiratory failure: Code(s): J96.00 - Acute respiratory failure, unspecified whether with hypoxia or hypercapnia Status: Acute Assessment and Plan: 09/23 Patient with morbid obesity and history of COVID pneumonia in April of 2021 without hospitalization and with a full recovery after 2 weeks, previously without respiratory issues was exposed to [facility] air conditioner coil and fan housecleaner floor containing 2 hydroxy propanoic acid and surfactant on 09/13/2021. he has had progressive worsening shortness of breath despite Augmentin and azithromycin as an outpatient and a chest x-ray with bibasilar interstitial alveolar infiltrates on 09/20 2021. Patient presented to the emergency department on 09/21/2021 with AFib and RVR, hypoxemic were and eventually hypercarbic respiratory failure required intubation, paralysis, high peep and high FiO2 followed by shock requiring Levophed, vasopressin and phenylephrine. I have discussed the case with poison control and at this time they have no documented cases of a specific lung inhalation injury related to the caustic material or surfactant in this housecleaner floor. There are no antidote and no recommended treatment that they provided other than supportive care. Etiology of this patient's acute respiratory failure include inhalational injury, infection, fluid overload and/or vasculitis with with alveolar hemorrhage. currently the patient is prone on high peep and FiO2 and in shock making it to risky to perform bronchoscopy. a this point I will send a respiratory pathogen panel that includes 23 respiratory pathogens, patient will have an echocardiogram once prone positioning can be reversed, I will send I will order a SPENSER screen that includes 11 different auto antibodies, an ANCA screen, a rheumatoid factor, anti CCP antibody, hypersensitivity pneumonitis panel, a CPK, and an aldolase level. I agree with vancomycin, ceftriaxone and doxycycline (cipro allergy and recieved azithro as outpatient). the patient is on hydrocortisone 100 mg IV t.i.d. for his shock and I would continue this at this time. at this point would not give higher doses of steroids. Discussed with ad compositor Dr. Desai, poison control, Dr Max (case #[id number]) and mother and brother at bedside. 09/23 09/23 patient remains intubated, sedated and paralyzed. Patient remains on Levophed. White blood cell 12.0, he is afebrile since 09/21, he is on CMV rate of 28 tidal volume 450 40% FiO2 and a peep of 10. Blood gases 7.41/44/77. Influenza swab is negative. Chest x-ray shows improved interstitial alveolar infiltrates in the apices. His creatinine is 1.90. vent management per ad compositor. Overall patient's hemodynamics, oxygenation, ventilation, leukocytosis, fever curve, creatinine have improved on vancomycin, ceftriaxone and doxycycline. Patient is also receiving hydrocortisone 100 mg IV t.i.d. for his shock. His influenza swab is negative. His rheumatoid factor is 14.4, CPK 546 and 603 and the remainder of his serologies and extended respiratory viral panel are pending. 09/24 Patient remains intubated, sedated with fentanyl, Versed and propofol and he is off the paralytic and off the Levophed today. White blood cell count is 11.0. He is on CMV rate of 28 tidal volume 450 55% FiO2 and a peep of 12. Blood gas is 7.38/47/62. Chest x-ray is no change. His creatinine is 1.8. Agree with vancomycin (started 09/22), ceftriaxone (started 09/21) and doxycycline (started 09/22) for total of 10 days. Would wean his hydrocortisone 100 mg q.8 hours as you would for sepstic shock. Ventilator management per ad compositor. remainder of serologies are pending. 09/28 Patient remains intubated and sedated with fentanyl and propofol. His last dose of hydrocortisone was 09/26 at 6:14 a.m.. white blood cell count is 8.0 on ceftriaxone, vancomycin and doxycycline. He is on CMV 28 tidal vol
[2021-09-28] MEDS: MINERAL OIL/WHITE PETROLATUM OINTMENT 1 APPLIC EACH EYE (09:16)
[2021-09-28] MEDS: PANTOPRAZOLE SODIUM IV 40 MG VIAL IV PUSH (09:16)
[2021-09-28] MEDS: INSULIN GLARGINE (*BKC) 100 UNITS/ML 20 UNITS SUB-Q (09:16)
[2021-09-28] MEDS: DOXYCYCLINE 100 MG/NS 100 ML 100 MG/100 ML BAG IVPB (09:21)
[2021-09-28] MEDS: PROPOFOL IV EMULSION 100 ML 31.98 MG IV CONT ×2 (09:27→13:01)
[2021-09-28] MEDS: FENTANYL 2,500MCG/NS250ML(*CRX 2,500 MCG/250 ML BAG 20 MCG IV CONT (09:34)
--- NOTE | 2021-09-28 09:44 | P.PNNP_ITS ---
Progress Note: A&P Assessment and Plan (1) RAJENDRA (acute kidney injury): Code(s): N17.9 - Acute kidney failure, unspecified Status: Acute Assessment and Plan: * multifactorial etiology: * hypotension/hemodynamics instability * contrast exposure (from admission CT PE protocol) * mild rhabdomyolysis * pre-renal factors * JACQUELINE-I use prior to admission * use of IV diuretic therapy (due to concerns of volume overload on admission) * evaluation to date: * urine electrolytes prerenal * renal ultrasound without obstruction * UA significant for hematuria (but without nephritic sediment) * serological testing in progress to r/o pulmonary renal syndrome (hemoptysis + hematuria on admission) * appears to have improved after IVF challenge yesterday (09/27/21) with decrease in creatinine and increased urine output * perhaps he is intravascularly dry despite outward signs of overload on admission * follow repeat labs and UOP * continue supportive therapy (2) Acute respiratory failure: Code(s): J96.00 - Acute respiratory failure, unspecified whether with hypoxia or hypercapnia Status: Acute Assessment and Plan: * due to a combination of pneumonia, pulmonary edema, and possible ARDS with chemical exposure/inhalation * COVID-19 testing negative * CT of chest of admission noted * previously receiving IV diuretics but on hold currently * on antibiotics * Pulmonary following * Echo results noted (systolic + diastolic dysfunction) * continue ventilatior support (3) Sepsis: Code(s): A41.9 - Sepsis, unspecified organism Status: Acute Assessment and Plan: * criteria for met although lactic acid level was normal * significant pressor requirement on admission * culture date noted * on broad spectrum antibiotics * continue supportive therapy (4) Shock: Code(s): R57.9 - Shock, unspecified Status: Acute Assessment and Plan: * thought to be secondary to sepsis and sedation * was on multiple vasopressor agents but has since been weaned off * follow trend of hemodyanmics (5) Atrial fibrillation with rapid ventricular response: Code(s): I48.91 - Unspecified atrial fibrillation Status: Acute Assessment and Plan: * rate control strategy as this time * careful anticoagulation given history of hemoptysis and hematuria (6) Diabetes: Code(s): E11.9 - Type 2 diabetes mellitus without complications Status: Acute Assessment and Plan: * follow accuchecks * on SSI and Lantus * glycemic control Will continue to follow Subjective Date/time seen: 09/28/21 09:44 Remains intubated/sedated on mechanical ventilation; trial of IVFs yesterday with improvement in renal function by AM labs today as well good urine output as well; remains hemodynamically stable without the need for vasopressor therapy; mother at bedside and we discussed the situation. Exam Narrative: General: WD/WN male in NAD; intubated/sedated Heart: normal S1 and S2; no rub Lungs: coarse breath sounds noted Abdomen: soft, nontender, nondistended, positive bowel sounds Extremities: no cyanosis or clubbing; trace edema Skin: warm and dry Objective Data Vital Signs Vital Signs: Vital Signs Temp Pulse Resp BP Pulse Ox O2 Del Method FiO2 09/28/21 09:34 66 28 H
--- NOTE | 2021-09-28 09:44 | PM.PNNEP ---
Progress Note: A&P Assessment and Plan (1) RAJENDRA (acute kidney injury): Code(s): N17.9 - Acute kidney failure, unspecified Status: Acute Assessment and Plan: multifactorial etiology: hypotension/hemodynamics instability contrast exposure (from admission CT PE protocol) mild rhabdomyolysis pre-renal factors JACQUELINE-I use prior to admission use of IV diuretic therapy (due to concerns of volume overload on admission) evaluation to date: urine electrolytes prerenal renal ultrasound without obstruction UA significant for hematuria (but without nephritic sediment) serological testing in progress to r/o pulmonary renal syndrome (hemoptysis + hematuria on admission) appears to have improved after IVF challenge yesterday (09/27/21) with decrease in creatinine and increased urine output perhaps he is intravascularly dry despite outward signs of overload on admission follow repeat labs and UOP continue supportive therapy (2) Acute respiratory failure: Code(s): J96.00 - Acute respiratory failure, unspecified whether with hypoxia or hypercapnia Status: Acute Assessment and Plan: due to a combination of pneumonia, pulmonary edema, and possible ARDS with chemical exposure/inhalation COVID-[address] of chest of admission noted previously receiving IV diuretics but on hold currently on antibiotics Pulmonary following Echo results noted (systolic + diastolic dysfunction) continue ventilatior support (3) Sepsis: Code(s): A41.9 - Sepsis, unspecified organism Status: Acute Assessment and Plan: criteria for met although lactic acid level was normal significant pressor requirement on admission culture date noted on broad spectrum antibiotics continue supportive therapy (4) Shock: Code(s): R57.9 - Shock, unspecified Status: Acute Assessment and Plan: thought to be secondary to sepsis and sedation was on multiple vasopressor agents but has since been weaned off follow trend of hemodyanmics (5) Atrial fibrillation with rapid ventricular response: Code(s): I48.91 - Unspecified atrial fibrillation Status: Acute Assessment and Plan: rate control strategy as this time careful anticoagulation given history of hemoptysis and hematuria (6) Diabetes: Code(s): E11.9 - Type 2 diabetes mellitus without complications Status: Acute Assessment and Plan: follow accuchecks on SSI and Lantus glycemic control Will continue to follow Subjective Date/time seen: 09/28/21 09:44 Remains intubated/sedated on mechanical ventilation; trial of IVFs yesterday with improvement in renal function by AM labs today as well good urine output as well; remains hemodynamically stable without the need for vasopressor therapy; mother at bedside and we discussed the situation. Exam Narrative: General: WD/WN male in NAD; intubated/sedated Heart: normal S1 and S2; no rub Lungs: coarse breath sounds noted Abdomen: soft, nontender, nondistended, positive bowel sounds Extremities: no cyanosis or clubbing; trace edema Skin: warm and dry Objective Data Vital Signs Vital Signs: Vital Signs Temp Pulse Resp BP Pulse Ox O2 Del Method FiO2 09/28/21 09:34 66 28 H 09/28/21 09:34 66 28 H 09/28/21 08:00 55 09/28/21 08:00 59 L 09/28/21 08:38 59 L 92 Mechanical Ventilation 55 09/28/21 07:26 37.1 C 60 28 H 127/63 93 09/28/21 04:00 58 L 28 H 93 Mechanical Ventilation 55 09/28/21 06:00 36.1 C L 58 L 28 H 130/63 93 09/28/21 06:00 57 L 09/28/21 05:50 57 L 94 Mechanical Ventilation 55 09/28/21 05:20 58 L 95 Mechanical Ventilation 60 09/28/21 04:38 58 L 28 H 09/28/21 04:38 58 L 28 H 09/28/21 04:36 59 L 28 H 09/28/21 03:17 59 L 28 H 09/28/21 04:00 60 09/28/21 04:00
[2021-09-28 10:58] LABS: ANA Cascade Screen Negative (Negative)
--- NOTE | 2021-09-28 11:30 | WPDINTPN ---
Progress Note: A&P Assessment and Plan (1) Acute respiratory failure: Code(s): J96.00 - Acute respiratory failure, unspecified whether with hypoxia or hypercapnia Status: Acute Assessment and Plan: Acute hypoxic Respiratory failure secondary to pulmonary edema and community-acquired pneumonia with possible ARDS from chemical inhalation -INTUBATED ON 09/22/2021 -Patient did report blood-tinged sputum but no significant blood was seen during intubation and no significant blood seen in tracheal aspiration post intubation from ETT -on admission he was placed in prone position due to hypoxia as well as on neuromuscular blockade. Now he is in supine position and OFF the neuromuscular blockade -currently on CMV mode of ventilation, peep of 12 and 60% FiO2. Maintain O2 sats greater than 92% -low tidal volume strategy -PF ratio of 128, ARDS physiology -currently on fentanyl, Versed and propofol infusion for sedation, he has been off the neuromuscular blockade Nimbex. -Continue full mechanical ventilation support to prevent hypoxemia/hypercarbia and end organ damage. - Sedation holidays have been limited as patient quickly becomes asynchronous with the ventilator, decompensates, desaturates and derecruits on sedation holiday. -chest x-ray and ABGs reviewed -He received Lasix on presentation. Further Lasix was held due to shock and acute kidney injury. Repeat dose of Lasix was given on 09/25. Hold further Lasix due to increasing creatinine -09/27 Will give fluids due to worsening renal function with improvement in creatinine -Continue empiric antibiotics in the form of Rocephin and doxycycline for a total of 10 days until October 01, 2021 for possible community-acquired pneumonia and septic shock -09/26 blood, urine, sputum cultures have been negative - Discussed case with Dr. Menendez, possible bronchoscopy, biopsy which cannot be done at this hospital, patient may need to be transferred to higher level of care Urine Legionella was negative Negative pneumococcal antigen and mycoplasma IgM CTA chest on presentation No CT evidence of acute pulmonary embolus. Markedly abnormal lung parenchyma, may reflect edema, atypical/viral infection, acute lung injury (including diffuse alveolar damage/hemorrhage), or combination of the preceding. COVID PCR was negative (2) Shock: Code(s): R57.9 - Shock, unspecified Status: Acute Assessment and Plan: Likely a combination of sepsis, cardiogenic, sedation Patient is overall volume overload Blood pressures improved and patient is off of vasopressors at this time off stress dose hydrocortisone Echocardiogram shows systolic and diastolic dysfunction with dilated IVC suggestive of elevated right atrial pressures Summary ? 1. Technically difficult study with limited views.? Regional wall motion assessment limited due to poor endomyocardial border definition despite definity contrast enhancement. ? 2. Left ventricular chamber dimension is mildly enlarged. ? 3. Left ventricular systolic function is probably lower limits of normal, estimated at 50-55%. ? 4. There is moderately increased left ventricular wall thickness. ? 5. The left ventricular diastolic function is grade II diastolic dysfunction. ? 6. Left atrial chamber dimension is moderately enlarged. ? 7. There is trace mitral valve regurgitation. (3) Sepsis: Code(s): A41.9 - Sepsis, unspecified organism Status: Acute Assessment and Plan: Patient met criteria for sepsis but is lactic acid level was normal on admission Later he became hypotensive Blood, urine, sputum cultures have been negative Urine Legionella, pneumococcal and mycoplasma IgM were negative Antibiotics as above (4) Atrial fibrillation with rapid ventricular response: Code(s): I48.91 - Unspecified atrial fibrillation Status: Acute Assessment and Plan: Patient was in AFib with RVR he was started on Cardizem infusion which did not
--- NOTE | 2021-09-28 12:23 | PCFNICU ---
ICU Rounding Note: Pt current nutrition is Nepro at 30 ml/hr over 22 hours. Last recorded weight is 156.2 kg, up from 144.7 kg on admit. Bowel Motility:+Bm reported 09/28 Labs Reviewed:Glu 117, BUN 63, Cr 2.2 Meds Noted:Versed, Heparin, Fentanyl, Propofol at 35 mics/31.98 ml/jh=752 kcals. Skin:WNL Additional Notes: Patient remains on mechanical vent and tube feedings. Formula change to Nepro at 30 ml/hr over 22 hours. Renal labs still elevated. Free water flush 30 ml q 4 hours. total nutrition including propofol infusion: 2032 kcals/53 gms protein/480 ml water. Meeting 75% of caloric needs and 51% of protein needs. Will continue to monitor propofol infusion for any tube feeding rate changes. Agree with diet orders. Following daily in ICU rounds and reassessing every Monday and Monday.
--- NOTE | 2021-09-28 12:45 | PM.TDS ---
Transfer Discharge Sum: Prov Provider Date of admission: 09/21/21 17:41 Primary care physician: Magdaleno Davila DO Admitting clinician: Katy Guillory MD Consults: 09/22/21 Consult to Physician Routine Comment: called md with consult information Consulting Provider: Sung Menendez call worker person/MD group to consult: Pulmonary Reason for consultation: ARDS Has provider been notified: Yes 09/24/21 Consult to Physician Routine Comment: Consulting Provider: Francisco J Desai Reason for consultation: respiratory failure, ICU admit Has provider been notified: Yes 09/27/21 Consult to Physician Routine Comment: called office with consult information Consulting Provider: Rodrigo Duff call worker person/MD group to consult: Nephrology Reason for consultation: RAJENDRA Has provider been notified: Yes DS: Admitting Diagnosis Discharge Date 09/28/2021 Admitting Diagnosis shortness of breath DS: Discharge Diagnosis Discharge Diagnosis (1) Acute respiratory failure: Code(s): J96.00 - Acute respiratory failure, unspecified whether with hypoxia or hypercapnia Status: Acute Assessment and Plan: Acute hypoxic Respiratory failure secondary to pulmonary edema and community-acquired pneumonia with possible ARDS from chemical inhalation -INTUBATED ON 09/22/2021 -Patient did report blood-tinged sputum but no significant blood was seen during intubation and no significant blood seen in tracheal aspiration post intubation from ETT -on admission he was placed in prone position due to hypoxia as well as on neuromuscular blockade. Now he is in supine position and OFF the neuromuscular blockade -currently on CMV mode of ventilation, peep of 12 and 60% FiO2. Maintain O2 sats greater than 92% -low tidal volume strategy -PF ratio of 128, ARDS physiology -currently on fentanyl, Versed and propofol infusion for sedation, he has been off the neuromuscular blockade Nimbex. -Continue full mechanical ventilation support to prevent hypoxemia/hypercarbia and end organ damage. - Sedation holidays have been limited as patient quickly becomes asynchronous with the ventilator, decompensates, desaturates and derecruits on sedation holiday. -chest x-ray and ABGs reviewed -He received Lasix on presentation. Further Lasix was held due to shock and acute kidney injury. Repeat dose of Lasix was given on 09/25. Hold further Lasix due to increasing creatinine -09/27 Will give fluids due to worsening renal function with improvement in creatinine -Continue empiric antibiotics in the form of Rocephin and doxycycline for a total of 10 days until October 01, 2021 for possible community-acquired pneumonia and septic shock -09/26 blood, urine, sputum cultures have been negative - Discussed case with Dr. Menendez, possible bronchoscopy, biopsy which cannot be done at this hospital, patient may need to be transferred to higher level of care Urine Legionella was negative Negative pneumococcal antigen and mycoplasma IgM CTA chest on presentation No CT evidence of acute pulmonary embolus. Markedly abnormal lung parenchyma, may reflect edema, atypical/viral infection, acute lung injury (including diffuse alveolar damage/hemorrhage), or combination of the preceding. COVID PCR was negative (2) Shock: Code(s): R57.9 - Shock, unspecified Status: Acute Assessment and Plan: Likely a combination of sepsis, cardiogenic, sedation Patient is overall volume overload Blood pressures improved and patient is off of vasopressors at this time off stress dose hydrocortisone Echocardiogram shows systolic and diastolic dysfunction with dilated IVC suggestive of elevated right atrial pressures Summary ? 1. Technically difficult study with limited views.? Regional wall motion assessment limited due to poor endomyocardial border definition despite definity contrast enhancement. ? 2. Left ventricular chamber dimension is mildly enlarged. ? 3. Lef
[2021-09-28] MEDS: MIDAZOLAM HCL (*CRX) 2 MG/2 ML VIAL 4 MG IV PUSH (15:01)
[2021-09-28] MEDS: fentaNYL CITRATE INJ (*CRX) 100 MCG/2 ML VIAL IV PUSH (15:02)
[2021-09-28] MEDS: ROCURONIUM BROMIDE 50 MG/5 ML VIAL 100 MG IV PUSH (15:02)
[2021-09-28 18:46] LABS: Glucose Point of Care 131 mg/dl (65-105)
[2021-10-03 14:15] LABS: Anti Glomerular Basement Memb <1.0 AI (<1.0)
== END 2021-09-28 15:06 | disposition short-term general hospital (02) | DRG 812 ==
LOC: ANHED 17:47 → ANHICU 09-23 13:20
PROVIDERS: Internal Medicine; Internal Medicine Pulmonary Disease; Nurse Practitioner Adult Health; Admitting Provider Family Medicine; Emergency Provider Emergency Medicine; PCP Internal Medicine; Visit Provider Family Medicine
DX: T39.311A Poisoning by propionic acid derivatives, accidental (unintentional), initial encounter (principal); A41.9 Sepsis, unspecified organism; J18.9 Pneumonia, unspecified organism; T50.991A Poisoning by other drugs, medicaments and biological substances, accidental (unintentional), initial encounter; R57.0 Cardiogenic shock; Y92.9 Unspecified place or not applicable; R65.21 Severe sepsis with septic shock; Z20.822 Contact with and (suspected) exposure to COVID-19; E78.5 Hyperlipidemia, unspecified; I48.91 Unspecified atrial fibrillation; I11.0 Hypertensive heart disease with heart failure; I50.9 Heart failure, unspecified; E66.01 Morbid (severe) obesity due to excess calories; Z68.41 Body mass index [BMI] 40.0-44.9, adult; E11.9 Type 2 diabetes mellitus without complications; J80 Acute respiratory distress syndrome; D75.1 Secondary polycythemia; M34.1 CR(E)ST syndrome; N17.9 Acute kidney failure, unspecified; R31.9 Hematuria, unspecified
CPT/HCPCS: 31500; 36415; 36600; 71045; 71275; 76775; 80053; 80202; 81001; 82085; 82375; 82550; 82570; 82805; 82948; 83050; 83520; 83605; 83735; 83880; 84100; 84145; 84300; 84443; 84478; 84484; 85025; 85027; 85610; 85730; 86036; 86038; 86200; 86331; 86430; 86606; 86609; 86738; 87040; 87070; 87077; 87086; 87186; 87205; 87449; 87486; 87502; 87581; 87633; 87804; 87899; 93005; 94002; 94003; 96365; 96366; 96375; 96376; 99285; A9270; C1751; C8929; C9113; C9803; J0131; J0282; J0330; J0456; J0610; J0696; J1644; J1650; J1720; J1815; J1940; J2250; J2370; J2704; J3010; J3370; J7030; J7040; J7050; J7060; P9047; Q9957; Q9967; U0003; U0005

== ENCOUNTER 2021-11-10 08:59 | Outpatient (CLI) | payer OTHER, SELFPAY ==
--- NOTE | 2021-12-12 12:39 | WPDSLEEPSTUD ---
Sleep Study Date of Study: 11/10/21 Ordering Provider: Magdaleno Davila DO Interpreting Physician: Delfina Sheppard DO Sleep Study Type: Split Polysomnogram Height: 1.85 m Weight: 115.666 kg Body Mass Index: 33.6 Neck Circumference (inches): 21 [place]: 6 Reason for Sleep Study Snoring Sleep History The patient is a 51-year-old male with type 2 diabetes, hypertension, hyperlipidemia, polycythemia, CREST syndrome and gout that had a sleep study ordered by his primary care physician for evaluation of sleep apnea. 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 He rarely awakens from sleep short of breath. He rarely awakens at night with heartburn, belching or cough. He frequently snores loud enough that others complain. He occasionally has trouble sleeping when he has a cold. He rarely wakes up gasping for air throughout the night. He rarely has breathing problems at night observed by himself or others. He occasionally sweats excessively at night. He denies having heart palpitations or irregular heartbeats during the night. He rarely falls asleep during the day and never while driving. He denies sleep paralysis, cataplexy and hypnagogic / hypnopompic hallucinations. He denies having trouble at school or work due to sleepiness. He denies feeling afraid of going to sleep. He rarely has nightmares. He rarely remembers his dreams. He rarely has thoughts racing through his mind. He denies feeling sad, depressed or anxious. He rarely has muscular tension. He rarely notices parts of his body jerk. He rarely kicks during the night. He rarely has crawling and aching feelings in his legs and rarely has leg pain during the night. He rarely grinds his teeth during sleep and never awakens with morning jaw pain. He is rarely bothered by pain during the day and rarely awakened by pain during the night. He occasionally wakes feeling stiff in morning. He occasionally wakes up with sore achy muscles. He occasionally wakes up with pain in the neck, spine or other joints. He goes to bed at 10:30 p.m. on weekdays and at 11:00 p.m. on weekends. It takes him 30 minutes to fall asleep. He wakes up 1-2 times throughout the night to urinate. He is able to fall asleep within a few minutes. He wakes up at 6:30 a.m. on weekdays and at 7:30 a.m. on the weekends. He typically gets 7 hours of sleep per. He stays in bed for 30 minutes after waking up in the morning. He currently lives with his 2 children. He denies consuming any caffeinated beverages within 2 hours of bedtime. He does not engage in physical exercise before bedtime. He will watch television before falling asleep. He will occasionally take naps in the afternoon or the evening and they are refreshing. He will consume caffeinated beverages but not on a daily basis. He denies tobacco use. He will occasionally drink alcohol. He currently uses marijuana. [facility] Past Medical History Medical History Arthritis of right acromioclavicular joint Chronic pain of right knee CREST syndrome Diverticulitis DM w/o complication type II Genital herpes HLD (hyperlipidemia) HTN (hypertension) Hyperglycemia Morbid obesity due to excess calories Osteoarthritis Polycythemia Family History Family History Father Family history of gout Family history of primary malignant neoplasm of liver Daughter Leukemia Other Family history of malignant neoplasm Hypertension Social History Social History Smoking status: Never smoker Alcohol intake: current Alcohol use details: occasionally Substance use: current Substance use type: marijuana 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
[2021-12-12 13:02] VITALS: BMI 33.6
== END 2021-11-11 06:42 | disposition home or self-care (01) ==
LOC: ANHCSM 08:59
PROVIDERS: PCP Internal Medicine; Visit Provider Internal Medicine
DX: G47.30 Sleep apnea, unspecified (principal)
CPT/HCPCS: 95811

== ENCOUNTER → 2022-01-10 14:37 | Outpatient (CLI) | payer OTHER, SELFPAY ==
--- NOTE | ~2022-01-10 | XR_ITS ---
EXAMINATION: XR chest 2V DATE: 01/10/2022 14:49 INDICATION: Toxic exposure. TECHNIQUE: Frontal and lateral views of the chest were obtained on 3 radiographs. COMPARISON: Chest single view 09/28/2021, chest CT 09/21/2021 FINDINGS: There is no pneumonia, pleural effusion, or pneumothorax. Cardiomegaly is noted. IMPRESSION: 1. Cardiomegaly. Reviewed, dictated and finalized at location A. IMPRESSION: 1. Cardiomegaly.
== END ==
PROVIDERS: PCP Internal Medicine; Visit Provider Internal Medicine
DX: Z77.098 Contact with and (suspected) exposure to other hazardous, chiefly nonmedicinal, chemicals (principal); I51.7 Cardiomegaly
CPT/HCPCS: 71046

== ENCOUNTER 2022-07-11 14:17 | Outpatient (CLI) | payer OTHER, SELFPAY ==
[2022-07-11 21:13] LABS: Hemoglobin A1C 6.1 % (<5.7)
== END 2022-07-11 14:18 | disposition home or self-care (01) ==
LOC: ANHGOSHLAB 14:18
PROVIDERS: PCP Internal Medicine; Visit Provider Internal Medicine
DX: E11.9 Type 2 diabetes mellitus without complications (principal)
CPT/HCPCS: 36415; 83036

== ENCOUNTER 2024-12-19 10:16 | Outpatient (CLI) | payer SELFPAY ==
--- OUTSIDE RECORDS SUMMARY | 2024-12-19 10:54 | XMS_ITS | Clinical Summary ---
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 Pulse 70 02/25/2013 10:24 AM PSYCHIATRIC SOCIAL WORKER SUPERVISOR Temperature - - Respiratory Rate - - Oxygen Saturation - - Inhaled Oxygen Concentration - - Weight 135.2 kg (298 lb) 02/25/2013 10:24 AM PSYCHIATRIC SOCIAL WORKER SUPERVISOR Height 188 cm (6' 2) 02/25/2013 10:24 AM PSYCHIATRIC SOCIAL WORKER SUPERVISOR Body Mass Index 38.26 02/25/2013 10:24 AM PSYCHIATRIC SOCIAL WORKER SUPERVISOR Plan of Treatment Health Maintenance Due Date Last Done Comments Colorectal Cancer Screening Colonoscopy (10 Years) 1971 Annual Physical 1974 Hepatitis C 1989 DTaP, Tdap and Td Vaccines ( 1 - Tdap) 1990 Hepatitis B Vaccines (1 of 3 - 19+ 3-dose series) 1990 Pneumococcal Vaccine: 50+ Ye ars (1 of 1 - PCV) 2021 Zoster Vaccines (1 of 2) 2021 COVID-19 Vaccine (1 - 2023-2 5 season) 2024 Meningococcal B Vaccine Aged Out No l onger eligible based on patient's age to complete this topic Meningococcal Vaccine Aged Out No bryson karin eligible based on patient's age to complete this topic RSV Immunizations Under 20 Months Aged Out No longer eligible based on patient's age to complete this topic
--- OUTSIDE RECORDS SUMMARY | 2024-12-19 10:54 | XMS_ITS | Clinical Summary ---
Author Organization [facility] Address [address] [place] [address] Care Team Providers Care Senior Talent Acquisition Specialist Name Role Phone Magdaleno Barger Primary Care Provider [phone] Source Comments [facility],non-owned Affiliates and Associated Physician Practices is amultiple site organization consisting of ambulatory clinics and hospital sitesin [place], [place], [place] and [place]. This disclosure is being madepursuant to the Care Everywhere program and may not contain all information available regarding this patient. Last updated 17.[facility] Allergies Active Allergy Reactions Criticality Noted Date Comments Ciprofloxacin Rash High 04/15/2011 Medications * Be aware that medications may not be up to date on this document. Alwaysverify current medications with the patient. allopurinol (ZYLOPRIM) 300 MG tablet Take 300 mg by mouth once daily 2 Active albuterol HFA (PROVENTIL; VENTOLIN; PROAIR) 108 (90 Base) MCG/ACT inhaler Inhale 2 puffs by mouth every 6 hours as needed for Shortness of Breath Active vitamin E (TOCOPHERYL) 100 UNIT capsule Take 100 Units by mouth once daily Active ascorbic acid (VITAMIN C) 500 MG tablet Take 500 mg by mouth once daily Active vitamin D3 (CHOLECALCIFERO L) 25 MCG (1000 UNITS) tablet Take 1,000 Units by mouth once daily Active zinc sulfate (ZINCATE) 220 (50 ZN) MG capsule Take 220 mg by mouth once daily Active cetirizine (ZYRTEC) 10 MG tablet Take 10 mg by mouth once daily Active metFORMIN (GLUCOPHAGE) 500 MG tablet Take 1 (one) tablet by mouth 2 times daily with morning and evening meal And after 1 week, increase to 2 tablets twice a day 2 Active Lancet Device MISC Use 1 device as directed 1 Each 2 Active lancets Use 1 (one) Each once daily 100 Each 2 Active blood glucose test strip Use 1 (one) strip as directed 100 strip 2 2 Active lisinopril (PRINIVIL; ZESTRIL) 10 MG tablet Take 1 (one) tablet by mouth once daily 60 tablet 2 Active Active Problems Problem Noted Date Diagnosed Date ARDS (adult respiratory distress syndrome) 09/28 Diverticulitis of large inte hany without perforation or abscess without bleeding 06/17/2011 Family History Medical History Relation Name Comments Cancer Father liver; Status: Cancer Paternal Grandfather mesothe lioma; Status: Cancer Paternal Grandmother ovarian ; Status: Relation Name Status Comments Father Paternal Grandfather Paternal Grandmother Social History Tobacco Use Types Packs/Day Years Used Date Smoking Tobacco: Never Cigarettes Smokeless Tobacco: Never Tobacco Cessation:Counseling Given: Yes Alcohol Use Standard Drinks/Week Comments No 0 (1 standard drink = 0.6 oz pur e alcohol) Hunger Vital Sign Answer Date Recorded Within the past 12 months, y ou worried that your food would run out before you got the money to buy more. Never true 09/30/19 22 Within the past 12 months, t he food you bought just didn't last and you didn't have money to get more. 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 Gender Identity Not on file Sexual Orientation Not on file Last Filed Vital Signs Vital Sign Reading Time Taken Comments Blood Pressure 133/84 10/27/2021 7:47 AM CDT Pulse 93 10/27/2021 7:47 AM CDT Temperature 37.2 C (98.9 F) 10/27/2021 7:47 AM CDT Respiratory Rate 18 10/27/2021 7:47 AM CDT Oxygen Saturation 99% 10/27/2021 7:47 AM CDT Inhaled Oxygen Concentration 35% 10/12/2021 8 :18 AM CDT Weight 120.6 kg (265 lb 12.8 oz) 10/20/2021 4:00 AM CDT Height 188 cm (6' 2.02) 09/28/2021 5:16 PM CDT Body Mass Index 34.11 09/28/2021 5:16 PM CDT Plan of Treatment Health Maintenance Due Date Last Done Comments COLOGUARD (AGES 45-75) - COL ON CA SCREENING 1971 COLON MONITORING 1971 COLONOSCOPY - COLON CA SCREENING 1971 CT COLONOGRAPHY - COLON CA SCREENING 1971 Colorectal Cancer Screening 1971 FIT - COLON CA SCREENING 1971 FLEX SIG - COLON CA SCREENING 1971 LIPID TESTING 1971 HIV SCREENING 1986 HEPATITIS C SCREENING 01/02/1989 DTAP/TDAP/TD VACCINES (1 - Tdap) 1990 HEPATITIS B VACCINE (1 of 3 - 19+ 3-dose series) 1990 PNEUMOCOCCAL VACCINE 50+ (1 of 1 - PCV) 2021 ZOSTER VACCINE (1 of 2) 2021 DEPRESSION SCREENING 04/03/2024 COVID-19 VACCINE (3 - 2024-2 6 season) 2024 03/22/2021, 07/07/2020 INFLUENZA VACCINE (#1) 2024 HIB VACCINE Aged Out No longer eligi ble based on patient's age to complete this topic HPV VACCINE Aged Out No longer eligi ble based on patient's age to complete this topic MENINGOCOCCAL (Group B) VACCINE SHARED DECISION-MAKING Aged Out No longer eligible based on patient's age to complete this topic MENINGOCOCCAL GROUPS A/C/Y/W VACCINE Aged Out No longer eligible b ased on patient's age to complete this topic Insurance [facility] Advance Directives Documents on File Type Date Recorded Patient Supervisor Offset Plate Preparation Expl anation Adv Directive/Living Will/POA 10/30/2021 4:38 PM * Full Code (Latest Code Status on File) Date Activated Date Inactivated Comments 09/28/2021 4:16 PM 10/27/2021 5:39 PM Care Teams Senior Talent Acquisition Specialist Relationship Specialty Start Date End Date Magdaleno Barger DO [address] [place] [address] PCP - General 04/11/11
[2024-12-19 14:23] LABS: MALB Creatinine Ratio > 707.2 mg/g (0-30)
== END 2024-12-19 10:17 | disposition home or self-care (01) ==
LOC: ANHGOSHLAB 10:17
PROVIDERS: PCP Internal Medicine; Visit Provider Internal Medicine
DX: E11.65 Type 2 diabetes mellitus with hyperglycemia (principal)
CPT/HCPCS: 82043